=== PATIENT | male | born 1970 | race Caucasian/White ===

== ENCOUNTER 2017-09-15 01:43 | Emergency (ER) | payer BC ==
[~2017-09-15] VITALS: Ht 180.3 cm; Wt 90.3 kg
[~2017-09-15 01:43] MED LIST: ASP81TEC PO; CYCL10TA9 PO; DICL75TA2 PO; Flexeril; HYDR-3714 PO; ISM30TCR PO; LISI10TA PO; METH4TAB PO; METO-333 PO; NAPR500T4 PO; OXYC-465 PO; SMV20T PO
[2017-09-15] MEDS ORDERED: RT-ALBUTEROL/IPRATROPIUM 3 ML (DUONEB) VIAL ONE (01:49)
[2017-09-15] MEDS ORDERED: RT-ALBUTEROL SULF 2.5 MG/3 ML PRE-MIX VIAL ONE (01:49)
[2017-09-15] MEDS ORDERED: cefTRIAXone 1 GM (ROCEPHIN) VIAL IV STA (01:55)
[2017-09-15] MEDS ORDERED: NS IV 1000 ML 1,000 ML IV ONE (01:55)
[2017-09-15] MEDS ORDERED: RT-ALBUTEROL SULF 2.5 MG/3 ML PRE-MIX VIAL INH STA (01:55)
[2017-09-15] MEDS ORDERED: RT-ALBUTEROL/IPRATROPIUM 3 ML (DUONEB) VIAL INH ONE (02:00)
--- NOTE | 2017-09-15 02:03 | ED Respiratory ---
General Chief Complaint: Coughing up blood Stated Complaint: CONGESTION/COUGHING UP BLOOD Source: patient, spouse Exam Limitations: no limitations History of Present Illness Time seen by provider: 01:50 Initial Comments Patient presents to ER by private conveyance with a chief complaint that he has had for the past several days symptoms of a cold with cough, chest congestion but then today started having a productive cough with some flecks of blood in it and worsening malaise, fatigue and shortness of air. He has no history of lung disease however he does smoke about half a pack cigarettes per day. He has had a heart catheter in the past when they did a angioplasty but no stents were placed. He denies any chest pain at this time. He's had some chills but no objective fever. He denies any nausea, thyroid disease. He does take metoprolol for blood pressure. He denies a history of heart failure. He's had no noted weight gain or swelling in his hands or feet. He does not have breathing treatments that he takes routinely. Allergies and Home Medications Allergies Coded Allergies: No Known Drug Allergies (Unverified , 01/20/11) Home Medications Albuterol Sulfate 2.5 Mg/0.5 Ml Vial.neb, 2.5 MG IH Q4H PRN for SHORTNESS OF BREATH for 7 Days, #30 Ref 0 Prescribed by: ARNULFO MCNAMARA on 09/15/17249 Albuterol Sulfate 2.5 Mg/0.5 Ml Vial.neb, 2.5 MG IH Q6H for 7 Days, #30 Ref 0 Prescribed by: ARNULFO MCNAMARA on 09/15/17249 Amoxicillin/Potassium Clav 1 Each Tablet, 1 EACH PO BID for 6 Days, #12 Ref 0 Prescribed by: ARNULFO MCNAMARA on 09/15/17249 Azithromycin 250 Mg Tablet, 250 MG PO DAILY, #4 Ref 0 Prescribed by: ARNULFO MCNAMARA on 09/15/17249 Cyclobenzaprine Hcl 10 Mg Tablet, 1 EACH PO BID, (Reported) Guaifenesin/Codeine Phosphate 120 Ml Liquid, 5 ML PO Q6H PRN for COUGH, #120 Ref 0 Prescribed by: ARNULFO MCNAMARA on 09/15/17256 Hydrocodone Bit/Acetaminophen 1 Each Tablet, 1 EACH PO Q6HR PRN, (Reported) Methylprednisolone 4 Mg/Dose-Pack Tab.ds.pk, 0 PO UD, #1 Ref 0 Take per package directions. Prescribed by: CUAUHTEMOC QURESHI on 08/09/12 0948 Metoprolol Tartrate 25 Mg Tablet, 1 EACH PO BID, (Reported) Naproxen 500 Mg Tablet, 500 MG PO TID, #90 Prescribed by: ZORAIDA SAWANT on 06/29/15 0813 Oxycodone Hcl/Acetaminophen 1 Each Tablet, 1-2 EACH PO Q8H PRN, #10 Ref 0 Prescribed by: CUAUHTEMOC QURESHI on 08/09/12 0946 Simvastatin 20 Mg Tab, 20 MG PO DAILY, (Reported) [Flexeril] , 10 BID, #20 Prescribed by: ZORAIDA SAWANT on 06/29/15 0813 Constitutional: chills, No fever, malaise EENTM: No hearing loss, No ear pain, No eye pain Respiratory: cough, dyspnea on exertion, hemoptysis, phlegm, short of breath, wheezing Cardiovascular: see HPI, No chest pain, vascular heart diseas Gastrointestinal: No abdominal pain, No constipation, No diarrhea, No nausea, No vomiting Genitourinary: No discharge, No dysuria Musculoskeletal: No back pain, No joint pain Skin: No pruritus, No rash Psychiatric/Neurological: Denies Headache, Denies Numbness, Denies Paresthesia Past Segpvjl-Gtrjxm-Psbckn Hx Patient Social History Alcohol Use: Regular Use Alcohol Beverage of Choice: Beer Recreational Drug Use: No Smoking Status: Current Everyday Smoker Type Used: Cigarettes (0.5 ppd) Recent Foreign Travel: No Contact w/Someone Who Travel: No Immunizations Up To Date Tetanus Booster (TDap): Unknown Date of Influenza Vaccine: Aug 08, 2012 Cardiovascular Cardiac Disorders: High Cholesterol, Hypertension Reproductive System Hx Reproductive Disorders: No Musculoskeletal Musculoskeletal Disorders: Chronic Back Pain Physical Exam Vital Signs Vital Sign - Last 12Hours 09/15/17 02:08 O2 Flow Rate 6.00 Capillary Refill : General Appearance: WD/WN, moderate distress Eyes: Bilateral Eye Normal Inspection, Bilateral Eye PERRL, Bilateral Eye EOMI HEENT: PERRL/EOMI, normal ENT inspection, TMs normal, pharynx normal Neck: non-tender, full range of motion, supple, normal inspection Respiratory: chest non-tender, respiratory distress (mild), No accessory muscle use, crackles (bilateral), rhonchi, wheezing Cardiovascular: normal peripheral pulses, regular rate, rhythm, no edema, no JVD Gastrointestinal: normal bowel sounds, non tender, soft Extremities: no pedal edema, normal capillary refill Neurologic/Psychiatric: alert, oriented x 3 Skin: normal color, warm/dry Focused Exam Evaluation Lactate Level Laboratory Tests 09/15/17 01:55: Lactic Acid Level 0.74 Lactic Acid Level Laboratory Tests Test 09/15/17 01:55 Lactic Acid Level 0.74 MMOL/L (0.50-2.00) Progress/Results/Core Measures Suspected Sepsis SIRS Temperature: Pulse: Respiratory Rate: Laboratory Tests 09/15/17 01:55: White Blood Count 11.8H Blood Pressure / Mean: Laboratory Tests 09/15/17 01:55: Lactic Acid Level 0.74 Laboratory Tests 09/15/17 01:55: Creatinine 0.79, INR Comment 0.9, Platelet Count 270, Total Bilirubin 0.3 Results/Orders Lab Results Laboratory Tests Test 09/15/17 01:55 Range/Units White Blood Count 11.8 H 4.3-11.0 10^3/uL Red Blood Count 4.34 L 4.35-5.85 10^6/uL Hemoglobin 13.0 L 13.3-17.7 G/DL Hematocrit 38 L 40-54 % Mean Corpuscular Volume 86 80-99 FL Mean Corpuscular Hemoglobin 30 25-34 PG Mean Corpuscular Hemoglobin Concent 35 32-36 G/DL Red Cell Distribution Width 12.0 10.0-14.5 % Platelet Count 270 130-400 10^3/uL Mean Platelet Volume 10.1 7.4-10.4 FL Neutrophils (%) (Auto) 67 42-75 % Lymphocytes (%) (Auto) 23 12-44 % Monocytes (%) (Auto) 7 0-12 % Eosinophils (%) (Auto) 3 0-10 % Basophils (%) (Auto) 0 0-10 % Neutrophils # (Auto) 7.9 H 1.8-7.8 X 10^3 Lymphocytes # (Auto) 2.7 1.0-4.0 X 10^3 Monocytes # (Auto) 0.8 0.0-1.0 X 10^3 Eosinophils # (Auto) 0.3 0.0-0.3 10^3/uL Basophils # (Auto) 0.0 0.0-0.1 10^3/uL Prothrombin Time 12.5 12.2-14.7 SEC INR Comment 0.9 0.8-1.4 Activated Partial Thromboplast Time 30 24-35 SEC Sodium Level 140 135-145 MMOL/L Potassium Level 3.5 L 3.6-5.0 MMOL/L Chloride Level 105 98-107 MMOL/L Carbon Dioxide Level 24 21-32 MMOL/L Anion Gap 11 5-14 MMOL/L Blood Urea Nitrogen 10 7-18 MG/DL Creatinine 0.79 0.60-1.30 MG/DL Estimat Glomerular Filtration Rate > 60 BUN/Creatinine Ratio 13 Glucose Level 112 H 70-105 MG/DL Lactic Acid Level 0.74 0.50-2.00 MMOL/L Calcium Level 9.3 8.5-10.1 MG/DL Total Bilirubin 0.3 0.1-1.0 MG/DL Aspartate Amino Transf (AST/SGOT) 18 5-34 U/L Alanine Aminotransferase (ALT/SGPT) 17 0-55 U/L Alkaline Phosphatase 83 40-136 U/L B-Type Natriuretic Peptide 16.5 <100.0 PG/ML Total Protein 7.2 6.4-8.2 GM/DL Albumin 4.5 3.2-4.5 GM/DL My Orders Orders - ANDERSARNULFO Chest Pa/Lat (2 View) (09/15/17 01:55) Cbc With Automated Diff (09/15/17 01:55) Comprehensive Metabolic Panel (09/15/17 01:55) Lactic Acid Analyzer (09/15/17 01:55) Blood Culture (09/15/17 01:55) Sputum Culture (09/15/17 01:55) Ua Culture If Indicated (09/15/17 01:55) Protime With Inr (09/15/17 01:55) Partial Thromboplastin Time (09/15/17 01:55) O2 (09/15/17 01:55) Saline Lock/Iv-Start (09/15/17 01:55) Saline Lock/Iv-Start (09/15/17 01:55) Vital Signs Adult Sepsis Patie Q1H (09/15/17 01:55) Ceftriaxone Injection (Rocephin Injectio (09/15/17 01:55) Remove Rings In Anticipation O (09/15/17 01:55) Albuterol Pre-Mix Nebs (Rt) (Proventil (09/15/17 01:55) Albuterol/Ipra Inhalation Soln (Duoneb I (09/15/17 02:00) Saline Lock/Iv-Start (09/15/17 01:55) Ns Iv 1000 Ml (Sodium Chloride 0.9%) (09/15/17 01:55) BNP (09/15/17 01:55) Svn Sm Volume Nebulizer Rt-Rfs (09/15/17 01:55) Albuterol Pre-Mix Nebs (Rt) (Proventil (09/15/17 01:49) Albuterol/Ipra Inhalation Soln (Duoneb I (09/15/17 01:49) Albuterol Pre-Mix Nebs (Rt) (Proventil (09/15/17 02:23) Azithromycin Tablet (Zithromax Tablet) (09/15/17 03:00) D5 Ns 1000 Ml Iv Solution (Dextrose 5%/0 (09/15/17 02:50) Rx-Amoxicillin/Clav Tab (Rx-Augmentin Ta (09/15/17 09:00) Rx-Amoxicillin/Clav Tab (Rx-Augmentin Ta (09/15/17 03:06) Medications Given in ED Current Medications Medications Dose Ordered Sig/Gt Route Start Time Stop Time Status Last Admin Dose Admin Albuterol Sulfate 2.5 mg STK-MED ONCE .ROUTE 09/15/17 01:49 09/15/17 01:59 DC 09/15/17 02:24 5 MG Albuterol/ Ipratropium 3 ml ONCE ONCE INH 09/15/17 02:00 09/15/17 02:01 DC 09/15/17 02:04 3 ML Azithromycin 500 mg ONCE ONCE PO 09/15/17 03:00 09/15/17 03:01 DC 09/15/17 03:10 500 MG Sodium Chloride 1,000 ml @ 0 mls/hr Q0M ONCE IV 09/15/17 01:55 09/15/17 01:59 DC 09/15/17 02:14 999 MLS/HR Vital Signs/I&O Vital Sign - Last 12Hours 09/15/17 09/15/17 09/15/17 09/15/17 01:56 01:56 02:04 02:08 Temp 98.6 Pulse 73 Resp 19 B/P (MAP) 169/61 Pulse Ox 97 91 98 O2 Delivery Room Air Room Air Room Air O2 Flow Rate 6.00 09/15/17 09/15/17 02:23 02:25 Pulse Ox 93 O2 Delivery Room Air Room Air Capillary Refill : Progress Note #1: Time: 02:02 Progress Note Differential includes pneumonia, CHF exacerbation, COPD exacerbation. His vitals are actually really good; 97% on room air. His breath sounds however were audible from across the room. Patient is fatigued on just walking in from the lobby. Initially just watching him walk in the room we were concerned about sepsis but his vitals, laboratory are looking more likely outpatient therapy. Curb 65: 0 points. Progress Note #2: Time: 02:22 Progress Note After receiving a DuoNeb and 2.5 mg of albuterol his breathing has improved considerably and now able to hear rhonchus and crackles in the right lower lobe and wheezes throughout. We are going to give him another 5 mg of albuterol. He does have a nebulizer that belongs to a family member as well as some albuterol he can borrow tomorrow until he fills his prescription at home the day after Thanksgiving. Progress Note #3: Time: 02:57 Progress Note After another 5 mg of albuterol the patient's wheezing has now subsided completely. He still having some crackles and faint amount of rhonchi in the right lower lung. He is feeling a little better but he noted he has not had to urinate very much the last 2 days. We'll going give him another bag of fluids before letting him get out of here with his initial dose of azithromycin and Rocephin that we will switch to by mouth Augmentin. Diagnostic Imaging Diagonstic Imaging: Xray Plain Films/CT/US/NM/MRI: chest (2v) Comments poss right lower lobe infiltrate. Reviewed: Reviewed by Me Departure Impression Impression: Primary Impression: Pneumonia Qualified Codes: J18.1 - Lobar pneumonia, unspecified organism Disposition: HOME, SELF-CARE Condition: Stable Departure-Patient Inst. Decision time for Depature: 02:39 Referrals: [facility] (PCP) Primary Care Physician LISSETTE NICHOLAS (Family) Primary Care Physician Patient Instructions: Community-Acquired Pneumonia, Adult (DC) Add. Discharge Instructions: Make sure you're drinking plenty of fluids. Take the azithromycin starting tomorrow one tablet daily. Take the Augmentin one tablet twice a day with food. Take the breathing treatments every 6 hours while awake and every 4 hours if you 're having wheezing or shortness of breath take another one. Follow-up in one week with your primary care physician to make sure you're doing well. If you're getting short of breath and the breathing treatments are not helping or other worsening symptoms such as chest pain you should return to the ER for further evaluation and management. All discharge instructions reviewed with patient and/or family. Voiced understanding. Scripts Guaifenesin/Codeine Phosphate (Codeine-Guaifen 10-100 mg/5 ml) 120 Ml Liquid 5 ML PO Q6H Y for COUGH, #120 ML 0 Refills Prov: ARNULFO MCNAMARA 09/15/17 Albuterol Sulfate (Albuterol Sulfate) 2.5 Mg/0.5 Ml Vial.neb 2.5 MG IH Q6H for 7 Days, #30 EACH 0 Refills Prov: ARNULFO MCNAMARA 09/15/17 Albuterol Sulfate (Albuterol Sulfate) 2.5 Mg/0.5 Ml Vial.neb 2.5 MG IH Q4H Y for SHORTNESS OF BREATH for 7 Days, #30 EACH 0 Refills Prov: ARNULFO MCNAMARA 09/15/17 Amoxicillin/Potassium Clav (Augmentin 875-125 Tablet) 1 Each Tablet 1 EACH PO BID for 6 Days, #12 TAB 0 Refills Prov: ARNULFO MCNAMARA 09/15/17 Azithromycin (Azithromycin) 250 Mg Tablet 250 MG PO DAILY, #4 TAB 0 Refills Prov: ARNULFO MCNAMARA 09/15/17 Copy Copies To 1: KAMILAH EDGE TITUS J Sep 15, 2017 02:03
[2017-09-15 02:09] LABS: BASOPHILS % (AUTO) 0 % (0-10); EOSINOPHILS # (AUTO) 0.3 10^3/uL (0.0-0.3); EOSINOPHILS % (AUTO) 3 % (0-10); LYMPHOCYTES # (AUTO) 2.7 X 10^3 (1.0-4.0); LYMPHOCYTES % (AUTO) 23 % (12-44); MEAN CORPUSCULAR HEMOGLOBIN 30 PG (25-34); MEAN CORPUSCULAR HGB CONC 35 G/DL (32-36); MEAN CORPUSCULAR VOLUME 86 FL (80-99); MEAN PLATELET VOLUME 10.1 FL (7.4-10.4); MONOCYTES # (AUTO) 0.8 X 10^3 (0.0-1.0); MONOCYTES % (AUTO) 7 % (0-12); NEUTROPHILS # (AUTO) 7.9 X 10^3 (1.8-7.8); NEUTROPHILS % (AUTO) 67 % (42-75); PLATELET COUNT 270 10^3/uL (130-400); RED BLOOD COUNT 4.34 10^6/uL (4.35-5.85); WHITE BLOOD COUNT 11.8 10^3/uL (4.3-11.0)
[2017-09-15 02:18] LABS: INR 0.9 (0.8-1.4); PROTHROMBIN TIME PATIENT 12.5 SEC (12.2-14.7)
[2017-09-15] MEDS ORDERED: RT-ALBUTEROL SULF 2.5 MG/3 ML PRE-MIX VIAL IH STA (02:23)
[2017-09-15 02:29] LABS: ALANINE AMINOTRANSFERASE 17 U/L (0-55); ALBUMIN 4.5 GM/DL (3.2-4.5); ANION GAP 11 MMOL/L (5-14); ASPARTATE AMINO TRANSFERASE 18 U/L (5-34); BILIRUBIN,TOTAL 0.3 MG/DL (0.1-1.0); BLOOD UREA NITROGEN 10 MG/DL (7-18); BUN/CREATININE RATIO 13; CALCIUM 9.3 MG/DL (8.5-10.1); CARBON DIOXIDE 24 MMOL/L (21-32); CHLORIDE 105 MMOL/L (98-107); CREATININE SERUM 0.79 MG/DL (0.60-1.30); GFR ESTIMATED > 60; GLUCOSE 112 MG/DL (70-105); POTASSIUM 3.5 MMOL/L (3.6-5.0); SODIUM 140 MMOL/L (135-145); TOTAL PROTEIN 7.2 GM/DL (6.4-8.2)
[2017-09-15] MEDS ORDERED: AMOX-358 PO (02:50)
[2017-09-15] MEDS ORDERED: D5 NS 1000 ML IV SOLUTION 1,000 ML IV STA (02:50)
[2017-09-15] MEDS ORDERED: ALB0.5V IH ×2 (02:50)
[2017-09-15] MEDS ORDERED: AZIT250T12 PO (02:50)
[2017-09-15] MEDS ORDERED: GUAI120L56 PO (02:57)
[2017-09-15] MEDS ORDERED: AZITHROMYCIN 250 MG TAB (ZITHROMAX) PO ONE (03:00)
[2017-09-15] MEDS ORDERED: RX-AMOX/CLAV. (AUGMENTIN) 500MG TAB PPK#2 PO ONE (03:06)
[2017-09-15 04:05] VITALS: BP 136/71
--- NOTE | 2017-09-15 07:51 | Diagnostic Imaging Report ---
Indication: Cough. Comparison: None available. Findings: There are scattered ill-defined airspace opacities, which are most pronounced in the left midlung. No pleural effusion or pneumothorax. Normal cardiomediastinal silhouette and pulmonary vasculature. Impression: 1. Scattered reticular and nodular airspace opacities may relate to infectious bronchiolitis in the appropriate setting. Dictated by: Dictated on workstation # [id number]
[2017-09-15] MEDS ORDERED: RX-AMOX/CLAV. (AUGMENTIN) 500MG TAB PPK#2 PO SCH (09:00)
== END 2017-09-15 04:05 | disposition home or self-care (01) ==
LOC: EDUNIT# 01:43 → ER 01:45
DX: J18.9 Pneumonia, unspecified organism (principal); E78.00 Pure hypercholesterolemia, unspecified; I10 Essential (primary) hypertension; F17.210 Nicotine dependence, cigarettes, uncomplicated; Z95.1 Presence of aortocoronary bypass graft
CPT/HCPCS: 36415; 71020; 80053; 83605; 83880; 85025; 85610; 85730; 87040; 87070; 87205; 94640; 94664

== ENCOUNTER 2018-07-06 21:59 | Emergency (ER) | payer BC ==
[~2018-07-06] VITALS: Ht 180.3 cm; Wt 90.3 kg
[~2018-07-06 21:59] MED LIST changes: +ALB0.5V IH; +AMOX-358 PO; +AZIT250T12 PO; +GUAI120L56 PO; +NAPR-915 PO; -NAPR500T4 PO
[2018-07-06] MEDS ORDERED: GABA600T2 (22:10)
[2018-07-06] MEDS ORDERED: GABA-490 (22:10)
[2018-07-06] MEDS ORDERED: SERT100T8 (22:11)
[2018-07-06] MEDS ORDERED: TIZA4TAB3 (22:11)
--- NOTE | 2018-07-06 22:36 | ED Upper Extremity ---
General Chief Complaint: Head/Cervical Problems Stated Complaint: PAIN IN R SIDE NECK/SHOULDER Nursing Triage Note: RIGHT NECK/ARM PAIN. NO INJURY. Nursing Sepsis Screen: No Definite Risk Source: patient History of Present Illness Date Seen by Provider: Jul 06, 2018 Time Seen by Provider: 22:20 Initial Comments PT ARRIVES VIA POV FROM HOME STATES AROUND 1330 TODAY, HE WAS WORKING ON A RIDING LAWNMOWER, AND TURNED HIS HEAD AND FELT A POP IN RIGHT SHOULDER/COLLAR BONE AREA. STATES NO DIRECT INJURY , AND WAS NOT LIFTING/PULLING ON ANYTHING AT TIME SINCE THEN, HE HAS HAD PAIN IN RIGHT TRAPEZIUS MUSCLE AREA PT HAS CHRONIC NECK PAIN AND STATES HE HAS "RADICULAR RIGHT ARM PAIN AND NEUROPATHY" STATES HE "WAS SUPPOSED TO HAVE SURGERY ON IT" BUT NEVER DID--THIS WAS A COUPLE OF YEARS AGO. WAS SEEN BY DR. DOUGHERTY AT [address], WHO DID PREVIOUS LUMBAR SURGERY PT HAS NOT FOLLOWED UP WITH [address] FOR YEARS PT IS ON GABAPENTIN AND BACLOFEN FOR CHRONIC NECK AND BACK PAIN--SEES MIKALA NICHOLAS AT [facility] HAS NOT TAKEN ANY THING FOR THIS PAIN TODAY. NO NEW PARESTHESIAS OR MOTOR DEFICITS PT IS RIGHT HANDED PT STATES HE HAS BEEN DOING A LOT OF WORK WITH [employer] THE LAST COUPLE OF WEEKS WELL PCP: [facility]. MIKALA NICHOLAS Allergies and Home Medications Allergies Coded Allergies: No Known Drug Allergies (Unverified , 01/20/11) Home Medications Albuterol Sulfate 2.5 Mg/0.5 Ml Vial.neb, 2.5 MG IH Q4H PRN for SHORTNESS OF BREATH Prescribed by: ARNULFO MCNAMARA on 09/15/17 0250 Meloxicam 15 Mg Tablet, 15 MG PO DAILY Prescribed by: PANKAJ ALEXIS on 07/06/18 2254 Metoprolol Tartrate 25 Mg Tablet, 1 EACH PO BID, (Reported) Patient Home Medication List Home Medication List Reviewed: Yes Review of Systems Constitutional: no symptoms reported Musculoskeletal: see HPI Skin: no symptoms reported Psychiatric/Neurological: See HPI Past Tmapjqz-Hsdysk-Jjluxa Hx Patient Social History Alcohol Use: Regular Use (DRINKS "6 OR 8" BEERS DAILY, PER PT ON 07/06/18) Number of Drinks Today: AA Alcohol Beverage of Choice: Beer Recreational Drug Use: No (DENIES) Smoking Status: Current Everyday Smoker (UP TO 2 PPD) Type Used: Cigarettes 2nd Hand Smoke Exposure: Yes Recent Foreign Travel: No Contact w/Someone Who Travel: No Recent Infectious Disease Expo: No Recent Hopitalizations: No Immunizations Up To Date Tetanus Booster (TDap): Unknown Date of Influenza Vaccine: Aug 10, 2017 Seasonal Allergies Seasonal Allergies: No Past Medical History Surgeries: Yes (LUMBAR SPINE SURGERY) Orthopedic Respiratory: No Currently Using CPAP: No Cardiac: Yes High Cholesterol, Hypertension Neurological: Yes ("RADICULAR NECK PAIN AND NEUROPATHY" PER PT ON 07/06/18) Headaches /Migraines, Neuropathy Reproductive Disorders: No Genitourinary: No Gastrointestinal: No Musculoskeletal: Yes (CHRONIC NECK AND BACK PAIN WITH RADICULOPATHY; S/P LUMBAR SPINE SURGERY) Degenerate Disk Disease, Chronic Back Pain Endocrine: No HEENT: No Cancer: No Psychosocial: No Integumentary: No Blood Disorders: No Physical Exam Vital Signs Vital Signs - First Documented 07/06/18 22:11 Temp 96.7 Pulse 84 Resp 18 B/P (MAP) 131/94 (106) Pulse Ox 96 O2 Delivery Room Air Capillary Refill : Less Than 3 Seconds Height, Weight, BMI Height: 5'11.00" Weight: 199lbs. oz. 90.294888pf; 26.64 BMI Method:Stated General Appearance: WD/WN, no apparent distress, other (REEKS OF CIGARETTES) Neck: other (TENDERNESS DIRECTLY OVER RIGHT TRAPEZIUS MUSCLE. NO CERVICAL SPINE TENDERNESS. ) Cardiovascular: regular rate, rhythm, no edema, no murmur Respiratory: normal breath sounds, no respiratory distress, no accessory muscle use Back: no vertebral tenderness, other (TENDERNESS DIRECTLY OVER RIGHT TRAPEZIUS MUSCLE. 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, no motor/sensory deficits, alert, normal mood/affect, oriented x 3 Skin: normal color, warm/dry Procedures/Interventions Splinting and Joint Reduction : Arm Sling: Sherman Progress/Results/Core Measures Results/Orders My Orders Orders - PANKAJ ALEXIS DO Shoulder, Right, 3 Views (07/06/18 22:25) Ed Ortho Supplies Order (07/06/18 22:47) Vital Signs/I&O 07/06/18 07/06/18 22:11 23:04 Temp 96.7 96.7 Pulse 84 84 Resp 18 18 B/P (MAP) 131/94 (106) 131/94 (106) Pulse Ox 96 96 O2 Delivery Room Air Blood Pressure Mean: 106 Progress Progress Note : Progress Note DECLINES SHOTS FOR PAIN IN ER Diagnostic Imaging Comments XRAYS RIGHT SHOULDER--NO ACUTE PROCESS, PENDING RADIOLOGIST REVIEW Reviewed: Reviewed by Me Departure Impression Primary Impression: Strain of right trapezius muscle Additional Impression: Chronic neck and back pain Disposition: HOME, SELF-CARE Condition: Stable Departure-Patient Inst. Referrals: [facility] (PCP) Primary Care Physician LISSETTE NICHOLAS (Family) Primary Care Physician Patient Instructions: Cervical Muscle Strain (DC), Muscle Strain (DC) Add. Discharge Instructions: WEAR SLING AT ALL TIMES MOIST HEAT TO AREA AT 20 MINUTE INTERVALS CONTINUE YOUR CURRENT MEDICATIONS PRESCRIBED FOLLOW UP WITH [facility] NEXT WEEK FOR FUTHER CARE All discharge instructions reviewed with patient and/or family. Voiced understanding. Scripts Meloxicam (Mobic) 15 Mg Tablet 15 MG PO DAILY, #10 TAB Prov: PANKAJ ALEXIS DO 07/06/18 PANKAJ ALEXIS DO Jul 06, 2018 22:36
[2018-07-06] MEDS ORDERED: MELO15TA14 PO (22:54)
[2018-07-06 23:04] VITALS: BP 131/94
--- NOTE | 2018-07-07 07:27 | Diagnostic Imaging Report ---
Indication: Right shoulder pain. Comparison: None available. Technique: 3 views of right shoulder. Findings: The glenohumeral and acromioclavicular joints are normal in alignment. No acute fracture. Subacromial space is well-maintained. No abnormal soft tissue mineralizations. Impression: Normal right shoulder radiographs. Dictated by: Dictated on workstation # [id number]
== END 2018-07-06 23:01 | disposition home or self-care (01) ==
LOC: EDUNIT# 21:59 → ER 22:00
DX: S46.811A Strain of other muscles, fascia and tendons at shoulder and upper arm level, right arm, initial encounter (principal); M54.2 Cervicalgia; G89.29 Other chronic pain; E78.00 Pure hypercholesterolemia, unspecified; I10 Essential (primary) hypertension; G43.909 Migraine, unspecified, not intractable, without status migrainosus; F17.210 Nicotine dependence, cigarettes, uncomplicated; Z79.51 Long term (current) use of inhaled steroids; X50.1XXA Overexertion from prolonged static or awkward postures, initial encounter
CPT/HCPCS: 73030

== ENCOUNTER → 2018-10-23 | Outpatient (CLI) | payer BC ==
[~2018-10-23] MED LIST changes: +GABA-490; +GABA600T2; +MELO15TA14 PO; +SERT100T8; +TIZA4TAB3
== END | disposition home or self-care (01) ==
LOC: PREOP 05:50
PROVIDERS: ATTEND Surgery
DX: Z01.818 Encounter for other preprocedural examination (principal)

== ENCOUNTER 2018-10-28 10:42 | Emergency (ER) | payer BC | END 2018-10-28 12:44 | disposition home or self-care (01) | LOC: ER 10:42 ==

== ENCOUNTER 2018-12-22 07:44 | Outpatient (CLI) | payer BC ==
[~2018-12-22] VITALS: Ht 180.3 cm; Wt 90.7 kg
[~2018-12-22 07:44] MED LIST changes: +AZIT250T PO; -GABA600T2; +GBPN600T PO; +PRED10TA22 PO; +RT-ALBUINH IH; -SERT100T8; +SERT100T8 PO
[2018-12-22] MEDS ORDERED: SIMV40TA4 PO (12:01)
[2018-12-22] MEDS ORDERED: METO50TA15 PO (12:01)
[2018-12-22] MEDS ORDERED: BACL20TA PO (12:01)
== END 2018-12-22 12:05 | disposition home or self-care (01) ==
LOC: PREOP 07:44
PROVIDERS: ATTEND Surgery
DX: Z01.818 Encounter for other preprocedural examination (principal)

== ENCOUNTER 2018-12-25 10:28 | Day surgery (SDC) | payer BC ==
[~2018-12-25] VITALS: Ht 180.3 cm; Wt 90.7 kg
[~2018-12-25 10:28] MED LIST changes: +BACL20TA PO; +METO50TA15 PO; +SIMV40TA4 PO
[2018-12-25] MEDS ORDERED: NS IV 500 ML 500 ML IV PRN (10:44)
[2018-12-25] MEDS ORDERED: MIDAZOLAM 2 MG/2 ML (VERSED) VIAL IVP ONE (10:45)
[2018-12-25] MEDS ORDERED: fentaNYL INJECTION 100 MCG/2 ML AMP IVP ONE (10:45)
[2018-12-25] MEDS ORDERED: NS IV 500 ML 500 ML ONE (10:49)
[2018-12-25 11:18] VITALS: BP 126/92
[2018-12-25] MEDS ORDERED: fentaNYL INJECTION 100 MCG/2 ML AMP ONE ×2 (12:03→12:25)
[2018-12-25] MEDS ORDERED: MIDAZOLAM 2 MG/2 ML (VERSED) VIAL ONE ×5 (12:03→12:39)
--- NOTE | 2018-12-25 13:04 | Conscious Sedation/ASA ---
Conscious Sedation Pre-Proced Time 10:00 ASA Score 2 For ASA 3 and 4: Consider anesthesia and medical clearance. Also, for patients with a history of failed moderate sedation consider anesthesia. Airway Lungs Heart ASA score ASA 1: a normal healthy patient ASA 2: a patient with a mild systemic disease (mid diabetes, controlled hypertension, obesity ASA 3: a patient with a severe systemic disease that limits activity (angina , COPD, prior Myocardial infarction) ASA 4: a patient with an incapacitating disease that is a constant threat to life (CHF, renal failure) ASA 5: a moribund patient not expected to survive 24 hrs. (ruptured aneurysm) ASA 6: a declared brain- patient whose organs are being harvested. For emergent operations, add the letter E after the classification Mallampati Classification Grade 1 Sedation Plan Discussed options with patient/fam The patient is an appropriate candidate to undergo the planned procedure, sedation, and anesthesia. The patient immediately re-assessed prior to indication. SHAUNA PABON MD Dec 25, 2018 13:04
--- NOTE | 2018-12-25 13:07 | Endo Procedure Record ---
Endo Procedure Report Date of Procedure Last Colonoscopy: Yes Dec 25, 2018 Surgeon (s) SHAUNA PABON MD Post Procedure/Op Diagnosis erythema and shallow ulcers extending from the rectum to the proximal descending colon Procedure Performed colonoscopy to cecum with multiple biopsies Description of Procedure Anesthesia Type: Conscious Sedation Specimen(s) collected/removed biopsy from multiple segments of the colon Description of the Procedure Indication for the procedure: This gentleman came in for colonoscopy to evaluate new onset of diarrhea. Clostridium difficile was confirmed to be negative. Informed consent was obtained after reviewing the procedure in detail. Description of the procedure: He was placed in left lateral decubitus position and his vital signs were monitored. Conscious sedation was achieved using Versed and fentanyl. Digital rectal examination was unremarkable. The colonoscope was then introduced in the rectum and advanced all the way up to cecum. It was then withdrawn slowly and the mucosa examined in a systematic fashion. Finding: Erythema and shallow ulcers involving the distal rectum, extending up to the proximal descending colon. There was no evidence of skip lesions. Multiple biopsies were taken. He tolerated the procedure well and was taken back to the nursing area in a stable condition. Impression: Diarrhea. Erythema and shallow ulcers involving the left colon biopsy pending. Copy Copies To 1: KAMILAH EDGE XAVIER M MD Dec 25, 2018 13:07
--- NOTE | 2018-12-25 13:08 | Discharge Inst-Simple/Standard ---
Discharge Inst-Standard Discharge Medications New, Converted or Re-Newed RX: Other Patient Instructions/Follow Up Plan of Care/Instructions/FU: follow-up with me this to discuss pathology reports and plan treatment Activity as Tolerated: Yes Discharge Diet: No Restrictions SHAUNA PABON MD Dec 25, 2018 13:08
[2018-12-25 13:10] VITALS: BP 105/76
[2018-12-25 13:40] VITALS: BP 128/89
[2018-12-25 14:15] VITALS: BP 128/89
== END 2018-12-25 13:40 | disposition home or self-care (01) ==
LOC: ENDO 10:28
PROVIDERS: ATTEND Surgery
DX: K62.6 Ulcer of anus and rectum (principal); K63.3 Ulcer of intestine; K52.9 Noninfective gastroenteritis and colitis, unspecified; F17.210 Nicotine dependence, cigarettes, uncomplicated

== ENCOUNTER 2020-08-24 20:37 | Emergency (ER) | payer BC ==
[~2020-08-24] VITALS: Ht 180 cm; Wt 95.0 kg
[~2020-08-24 20:37] MED LIST changes: +SIMV40TA25 PO; -SIMV40TA4 PO; -TIZA4TAB3; +TIZA4TAB4
[2020-08-24] MEDS ORDERED: RT-ALBUTEROL INHALER HFA (VENTOLIN HFA) 18 GM IH ONE (20:52)
--- NOTE | 2020-08-24 20:55 | ED General ---
General Stated Complaint: COUGH/CONGESTION/HEADACHE/SORE THROAT Source of Information: Patient Exam Limitations: No Limitations History of Present Illness Date Seen by Provider: Aug 24, 2020 Time Seen by Provider: 20:53 Initial Comments to ER not feeling well. Symptoms all began this morning including a cough, wheezing, rhinorrhea, headache and sore throat. She also has body aches. No measured fever. He is employed at [employer] Timing/Duration: 1-2 Days Severity: Moderate Associated Systoms: Cough Allergies and Home Medications Allergies Coded Allergies: No Known Drug Allergies (Unverified , 01/20/11) Home Medications Baclofen 20 Mg Tablet, 20 MG PO DAILY, (Reported) Cefuroxime Axetil 500 Mg Tablet, 500 MG PO BID Prescribed by: MAREK KEITA on 08/24/202201 Gabapentin 600 Mg Tablet, 600 MG PO TID, (Reported) Metoprolol Tartrate 50 Mg Tablet, 75 MG PO BID, (Reported) take 1 1/2 of 50mg tab Prednisone 20 Mg Tab, 40 MG PO DAILY Prescribed by: MAREK KEITA on 08/24/202201 Sertraline HCl 100 Mg Tablet, 100 MG PO DAILY, (Reported) Simvastatin 40 Mg Tablet, 40 MG PO DAILY, (Reported) Patient Home Medication List Home Medication List Reviewed: Yes Review of Systems Review of Systems Constitutional: see HPI EENTM: see HPI Respiratory: see HPI, cough Cardiovascular: no symptoms reported Genitourinary: no symptoms reported Musculoskeletal: no symptoms reported Skin: no symptoms reported Psychiatric/Neurological: No Symptoms Reported Hematologic/Lymphatic: No Symptoms Reported Past Ahxdzoj-Seydrc-Vhstol Hx Patient Social History Alcohol Beverage of Choice: Beer Type Used: Cigarettes 2nd Hand Smoke Exposure: Yes Recent Foreign Travel: No Contact w/Someone Who Travel: No Recent Hopitalizations: No Immunizations Up To Date Tetanus Booster (TDap): Unknown Date of Influenza Vaccine: Aug 10, 2018 Seasonal Allergies Seasonal Allergies: No Past Medical History Surgeries: Yes (LUMBAR SPINE SURGERY) Orthopedic Respiratory: No Currently Using CPAP: No Cardiac: Yes High Cholesterol, Hypertension Neurological: Yes ("RADICULAR NECK PAIN AND NEUROPATHY" PER PT ON 07/06/18) Headaches /Migraines, Neuropathy Reproductive Disorders: No Genitourinary: No Gastrointestinal: No Musculoskeletal: Yes (CHRONIC NECK AND BACK PAIN WITH RADICULOPATHY; S/P LUMBAR SPINE SURGERY) Degenerate Disk Disease, Chronic Back Pain Endocrine: No HEENT: No Cancer: No Psychosocial: No Integumentary: No Blood Disorders: No Physical Exam Vital Signs Vital Signs - First Documented 08/24/20 20:54 Temp 36.6 Pulse 85 Resp 24 B/P (MAP) 157/105 (122) Pulse Ox 96 O2 Delivery Room Air Capillary Refill : Height, Weight, BMI Height: 5'11.00" Weight: 200lbs. 0.0oz. 90.826019wt; 27.9 BMI Method:Stated General Appearance: No Apparent Distress, WD/WN, Other (little tachypnea with a rate of 24, crackles on the right, wheezing on the left. Oxygen saturation 97%.) Eyes: Bilateral Eye Normal Inspection, Bilateral Eye PERRL, Bilateral Eye EOMI HEENT: PERRL/EOMI, TMs Normal Neck: Full Range of Motion, Normal Inspection Respiratory: No Accessory Muscle Use, No Respiratory Distress Cardiovascular: Regular Rate, Rhythm, Normal Peripheral Pulses Extremity: Normal Capillary Refill, Normal Inspection Neurologic/Psychiatric: Alert, Oriented x3 Skin: Normal Color, Warm/Dry Progress/Results/Core Measures Suspected Sepsis SIRS Temperature: Pulse: Respiratory Rate: Laboratory Tests 08/24/20 21:02: White Blood Count 15.6H Blood Pressure / Mean: Laboratory Tests 08/24/20 21:02: Creatinine 0.98, Platelet Count 272 Results/Orders Lab Results Laboratory Tests Test 08/24/20 21:02 Range/Units White Blood Count 15.6 H 4.3-11.0 10^3/uL Red Blood Count 4.84 4.30-5.52 10^6/uL Hemoglobin 14.4 13.3-17.7 g/dL Hematocrit 43 40-54 % Mean Corpuscular Volume 88 80-99 fL Mean Corpuscular Hemoglobin 30 25-34 pg Mean Corpuscular Hemoglobin Concent 34 32-36 g/dL Red Cell Distribution Width 12.2 10.0-14.5 % Platelet Count 272 130-400 10^3/uL Mean Platelet Volume 9.8 9.0-12.2 fL Immature Granulocyte % (Auto) 0 % Neutrophils (%) (Auto) 81 H 42-75 % Lymphocytes (%) (Auto) 13 12-44 % Monocytes (%) (Auto) 3 0-12 % Eosinophils (%) (Auto) 3 0-10 % Basophils (%) (Auto) 0 0-10 % Neutrophils # (Auto) 12.6 H 1.8-7.8 10^3/uL Lymphocytes # (Auto) 2.0 1.0-4.0 10^3/uL Monocytes # (Auto) 0.5 0.0-1.0 10^3/uL Eosinophils # (Auto) 0.4 H 0.0-0.3 10^3/uL Basophils # (Auto) 0.1 0.0-0.1 10^3/uL Immature Granulocyte # (Auto) 0.1 0.0-0.1 10^3/uL Sodium Level 139 135-145 MMOL/L Potassium Level 3.5 L 3.6-5.0 MMOL/L Chloride Level 103 98-107 MMOL/L Carbon Dioxide Level 23 21-32 MMOL/L Anion Gap 13 5-14 MMOL/L Blood Urea Nitrogen 17 7-18 MG/DL Creatinine 0.98 0.60-1.30 MG/DL Estimat Glomerular Filtration Rate > 60 BUN/Creatinine Ratio 17 Glucose Level 93 70-105 MG/DL Calcium Level 9.5 8.5-10.1 MG/DL C-Reactive Protein High Sensitivity 0.40 0.00-0.50 MG/DL Coronavirus 2019 (NEIL) Negative Negative Micro Results Microbiology 08/24/20 Influenza Types A,B Antigen (ARASELI) - Final, Complete My Orders Orders - MAREK KEITA APRN Influenza A And B Antigens (08/24/20 20:44) Chest 1 View, Ap/Pa Only (08/24/20 20:44) Covid 19 Inhouse Test (08/24/20 20:44) Coronavirus Sars-Cov-2 So 2018 (08/24/20 20:44) Cbc With Automated Diff (08/24/20 20:52) Basic Metabolic Panel (08/24/20 20:52) Hs C Reactive Protein (08/24/20 20:52) Ed Iv/Invasive Line Start (08/24/20 20:52) Albuterol Inhaler (Ventolin Hfa) (08/24/20 22:00) Albuterol Inhaler (Ventolin Hfa) (08/24/20 20:52) Ketorolac Injection (Toradol Injection) (08/24/20 21:15) Manual Differential (08/24/20 21:02) Prednisone Tablet (Deltasone Tablet) (08/24/20 22:00) Ceftriaxone For Iv Use (Rocephin For I (08/24/20 22:00) Medications Given in ED Current Medications Medications Dose Ordered Sig/Gt Route Start Time Stop Time Status Last Admin Dose Admin Albuterol Sulfate 18 gm STK-MED ONCE IH 08/24/20 20:52 08/24/20 20:54 DC 08/24/20 21:09 18 GM Ketorolac Tromethamine 15 mg ONCE ONCE IVP 08/24/20 21:15 08/24/20 21:16 DC 08/24/20 21:21 15 MG Vital Signs/I&O 08/24/20 20:54 Temp 36.6 Pulse 85 Resp 24 B/P (MAP) 157/105 (122) Pulse Ox 96 O2 Delivery Room Air Capillary Refill : Diagnostic Imaging Diagonstic Imaging: Xray Plain Films/CT/US/NM/MRI: chest Comments NAME: TY THOMPSON MED REC#: [id number] PT STATUS: REG ER : 1970 PHYSICIAN: MAREK KEITA APRN ADMIT DATE: 08/24/20/ER Draft Date of Exam:08/24/20 CHEST 1 VIEW, AP/PA ONLY INDICATION: Cough. COMPARISON: 10/28/2018. TECHNIQUE: Single radiograph of the chest dated August 24, 2020. FINDINGS: The cardiac silhouette is within normal limits in size. No significant pulmonary vascular congestion. The lungs are clear. No pleural effusion. No pneumothorax. No acute osseous abnormality. IMPRESSION: No acute cardiopulmonary abnormality. Dictated on workstation # [id number] Dict: 08/24/202119 Trans: 08/24/202124 [facility] [id number] Interpreted by: UCHE DIAZ MD Electronically signed by: Departure Impression Primary Impression: Bronchitis Disposition: HOME, SELF-CARE Condition: Stable Departure-Patient Inst. Decision time for Depature: 21:31 Referrals: [facility] (PCP) Primary Care Physician LISSETTE NICHOLAS (Family) Primary Care Physician Patient Instructions: Acute Bronchitis, Adult (DC) Add. Discharge Instructions: 1. 2 puffs of the inhaler every 2-4 hours as needed for wheezing. Take the steroids and antibiotics as directed. Follow-up with your doctor later this week for recheck. Return to ER for any worsening. Scripts Cefuroxime Axetil (Cefuroxime) 500 Mg Tablet 500 MG PO BID, #10 TAB Prov: MAREK KEITA APRN 08/24/20 Prednisone (Prednisone) 20 Mg Tab 40 MG PO DAILY, #6 TAB 0 Refills Prov: MAREK KEITA APRN 08/24/20 Work/School Note: Work Release Form Date Seen in the Emergency Department: Aug 24, 2020 Return to Work: Aug 24, 2020 Restrictions: Need Release from Doctor MAREK KEITA APRN Aug 24, 2020 20:55
[2020-08-24 21:11] LABS: BASOPHILS # (AUTO) 0.1 10^3/uL (0.0-0.1); BASOPHILS % (AUTO) 0 % (0-10); EOSINOPHILS # (AUTO) 0.4 10^3/uL (0.0-0.3); EOSINOPHILS % (AUTO) 3 % (0-10); HEMATOCRIT 43 % (40-54); HEMOGLOBIN 14.4 g/dL (13.3-17.7); LYMPHOCYTES % (AUTO) 13 % (12-44); MEAN CORPUSCULAR HEMOGLOBIN 30 pg (25-34); MEAN CORPUSCULAR HGB CONC 34 g/dL (32-36); MEAN CORPUSCULAR VOLUME 88 fL (80-99); MEAN PLATELET VOLUME 9.8 fL (9.0-12.2); MONOCYTES # (AUTO) 0.5 10^3/uL (0.0-1.0); MONOCYTES % (AUTO) 3 % (0-12); NEUTROPHILS # (AUTO) 12.6 10^3/uL (1.8-7.8); NEUTROPHILS % (AUTO) 81 % (42-75); PLATELET COUNT 272 10^3/uL (130-400); WHITE BLOOD COUNT 15.6 10^3/uL (4.3-11.0)
[2020-08-24] MEDS ORDERED: KETOROLAC 30 MG/ML VIAL IVP ONE (21:15)
--- NOTE | 2020-08-24 21:17 | NUR ---
Pt to room, onto monitor, IV started and labs drawn. Meds given as ordered. Pt noted to have coarse lung sounds with auscultation and reports a non-productive cough but moderate amount of clear mucous secretions from his nose.
--- NOTE | 2020-08-24 21:25 | Diagnostic Imaging Report ---
INDICATION: Cough. COMPARISON: 10/28/2018. TECHNIQUE: Single radiograph of the chest dated August 24, 2020. FINDINGS: The cardiac silhouette is within normal limits in size. No significant pulmonary vascular congestion. The lungs are clear. No pleural effusion. No pneumothorax. No acute osseous abnormality. IMPRESSION: No acute cardiopulmonary abnormality. Dictated by: Dictated on workstation # [id number]
[2020-08-24 21:26] LABS: CHLORIDE 103 MMOL/L (98-107); POTASSIUM 3.5 MMOL/L (3.6-5.0); SODIUM 139 MMOL/L (135-145)
[2020-08-24 21:27] LABS: CALCIUM 9.5 MG/DL (8.5-10.1)
[2020-08-24 21:28] LABS: GLUCOSE 93 MG/DL (70-105)
[2020-08-24 21:29] LABS: CARBON DIOXIDE 23 MMOL/L (21-32)
[2020-08-24 21:32] LABS: CREATININE SERUM 0.98 MG/DL (0.60-1.30); GFR ESTIMATED > 60
[2020-08-24 21:33] LABS: BUN/CREATININE RATIO 17
[2020-08-24] MEDS ORDERED: predniSONE 20 MG TAB PO ONE (22:00)
[2020-08-24] MEDS ORDERED: RT-ALBUTEROL INHALER HFA (VENTOLIN HFA) 18 GM IH SCH (22:00)
[2020-08-24] MEDS ORDERED: cefTRIAXone FOR IV USE 1,000 MG in WATER (STERILE) FOR INJECTION 10 ML IV ONE (22:00)
[2020-08-24] MEDS ORDERED: CEFU500T63 PO (22:02)
[2020-08-24] MEDS ORDERED: PRD20T PO (22:02)
[2020-08-24 22:05] LABS: EOSINOPHILS % (MANUAL) 3 %; LYMPHOCYTES % (MANUAL) 14 %; MONOCYTES % (MANUAL) 2 %; NEUTROPHILS % (MANUAL) 81 %; RBC MORPH NORMAL
[2020-08-24 22:27] VITALS: BP 157/105
== END 2020-08-24 22:37 | disposition home or self-care (01) ==
LOC: EDUNIT# 20:37 → ER 20:38
DX: J40 Bronchitis, not specified as acute or chronic (principal); E78.00 Pure hypercholesterolemia, unspecified; I10 Essential (primary) hypertension; Z77.22 Contact with and (suspected) exposure to environmental tobacco smoke (acute) (chronic); Z79.52 Long term (current) use of systemic steroids; Z20.828 Contact with and (suspected) exposure to other viral communicable diseases
CPT/HCPCS: 71045; 80048; 85007; 85027; 86141; 87804; 99284; U0002; 36415; 87635

== ENCOUNTER → 2021-09-03 | Outpatient (CLI) | payer BC ==
[~2021-09-03] MED LIST changes: +CEFU500T63 PO; +PRD20T PO; +SERT-414 PO; -SERT100T8 PO
--- NOTE | 2021-09-03 16:13 | Diagnostic Imaging Report ---
PROCEDURE: MR imaging cervical spine without contrast. TECHNIQUE: Multiplanar, multisequence MR imaging of the cervical spine was performed without contrast. INDICATION: Neck pain with bilateral upper extremity radiculopathy. COMPARISON: 06/29/2015. FINDINGS: No acute fracture or dislocation is seen in the cervical spine. There is normal alignment of the cervical spine. The vertebral body heights and disc spaces are well maintained. The bone marrow signal is unremarkable. No focal osseous lesions. The craniocervical junction is maintained. The cervical spinal cord demonstrates normal intrinsic signal. No epidural collections are seen. The included brainstem and posterior fossa have normal appearance. Multilevel degenerative changes are seen in the cervical spine with posterior disc bulges and uncovertebral arthropathy. C2-C3: No significant spinal canal or foraminal stenosis. C3-C4: No significant spinal canal or foraminal stenosis. C4-C5: No significant spinal canal or foraminal stenosis. C5-C6: Posterior disc bulge, buckling of the ligamentum flavum, and uncovertebral arthropathy result in moderate spinal canal stenosis and aoqrjbxj-kx-zrozub right and mild left foraminal stenosis. C6-C7: Posterior disc bulge and uncovertebral arthropathy result in moderate spinal canal stenosis and [id number]-[id number] bilateral foraminal stenosis. C7-T1: No significant spinal canal or foraminal stenosis. The soft tissues of neck are unremarkable. IMPRESSION: 1. No acute fracture or dislocation of the cervical spine. 2. Multilevel degenerative changes in the cervical spine, greatest at C5-C6 and C6-C7. Dictated by: Dictated on workstation # [id number]
== END ==
LOC: RAD 14:00
PROVIDERS: ATTEND Physician Assistant
DX: M47.812 Spondylosis without myelopathy or radiculopathy, cervical region (principal)
CPT/HCPCS: 72141

== ENCOUNTER 2021-10-09 22:58 | Emergency (ER) | payer BC ==
[~2021-10-09] VITALS: Ht 180.3 cm; Wt 89.4 kg
[~2021-10-09 22:58] MED LIST changes: +TIZA-186; -TIZA4TAB4
--- NOTE | 2021-10-09 23:57 | ED Respiratory ---
General Chief Complaint: COVID19 Suspect/Confirmed Stated Complaint: AMADOR,FEVER,CONGESTION,COUGH BODY ACHES Nursing Triage Note: Pt arrives via POV from home with c/o cough/congestion, headache, et fever; onset 10/07/21. Pt denies known COVID contacts; reports he has not received COVID vaccine, does report he was dx with COVID last year. Source: patient History of Present Illness Date Seen by Provider: Oct 09, 2021 Time Seen by Provider: 23:19 Initial Comments PT ARRIVES VIA POV FROM HOME PT HAS BEEN ILL SINCE 10/07/21 C/O FEVER UP TO 102 C/O COUGH/CONGESTION C/O HEADACHE C/O FATIGUE C/O BODY ACHES C/O DECREASED APPETITE NO LOSS OF TASTE OR SMELL + SORE THROAT + SHORTNESS OF BREATH PT HAS NOT HAD COVID-19 VACCINE STATES HE HAD COVID-19 LAST YEAR IN AUGUST 2020, NO HOSPITALIZATION ( COVID TESTS DONE HERE IN ER 08/24/2020 WERE ALL NEGATIVE ) DAUGHTER TESTED + FOR COVID THE END OF AUGUST--2 WEEKS PRIOR TO ONSET OF PT'S SYMPTOMS PT LIVES WITH AND GRAND DAUGHTER DAUGHTER IS FREQUENTLY AT THE HOUSE SYMPTOMS NO DIFFERENT TONIGHT ( TUESDAY NIGHT) STATES HIS FAMILY MADE HIM COME H ERE TONIGHT AND GET TESTED HAS TAKEN DAYQUIL AND NYQUIL FOR SYMPTOMS AT DISMISSAL, PT NOW STATES HE WAS AT [facility] TODAY AROUND NOON FOR THIS PROBLEM AND TESTED NEGATIVE FOR COVID AND WAS ADVISED TO RETURN IN 24 HOURS TO GET RETESTED PCP: [facility] Allergies and Home Medications Allergies Coded Allergies: No Known Drug Allergies (Unverified , 01/20/11) Patient Home Medication List Home Medication List Reviewed: Yes Baclofen (Baclofen) 20 Mg Tablet, 20 MG PO DAILY, (Reported) Entered as Reported by: RYAN OROZCO on 12/22/18 1201 Cefuroxime Axetil (Cefuroxime) 500 Mg Tablet, 500 MG PO BID Prescribed by: MAREK KEITA on 08/24/20 220 Dexamethasone (Decadron) 6 Mg Tablet, 6 MG PO DAILY Prescribed by: PAKNAJ ALEXIS on 10/10/21 0036 Gabapentin (Gabapentin) 600 Mg Tablet, 600 MG PO TID, (Reported) Entered as Reported by: EFRAIN GASCA on 07/06/18 2210 Metoprolol Tartrate (Metoprolol Tartrate) 50 Mg Tablet, 75 MG PO BID, (Reported) Entered as Reported by: RYAN OROZCO on 12/22/18 1201 Ondansetron (Ondansetron Odt) 4 Mg Tab.rapdis, 4 MG PO Q4H Prescribed by: PANKAJ ALEXIS on 10/10/21 0036 Prednisone (Prednisone) 20 Mg Tab, 40 MG PO DAILY Prescribed by: MAREK KEITA on 08/24/20 2202 Sertraline HCl (Sertraline HCl) 100 Mg Tablet, 100 MG PO DAILY, (Reported) Entered as Reported by: EFRAIN GASCA on 07/06/18 2211 Simvastatin (Simvastatin) 40 Mg Tablet, 40 MG PO DAILY, (Reported) Entered as Reported by: RYAN OROZCO on 12/22/18 1201 Review of Systems Review of Systems Constitutional: see HPI, fever, malaise, weakness EENTM: nose congestion Respiratory: cough; No short of breath Cardiovascular: no symptoms reported Gastrointestinal: see HPI, loss of appetite Genitourinary: no symptoms reported Musculoskeletal: see HPI (BODY ACHES) Skin: no symptoms reported Psychiatric/Neurological: See HPI, Headache Hematologic/Lymphatic: No Symptoms Reported Immunological/Allergic: no symptoms reported Past Msmwpmb-Wkjpdj-Wnsvfs Hx Patient Social History Tobacco Use?: Yes Tobacco type used: Cigarettes Smoking Status: Current Everyday Smoker Use of E-Cig and/or Vaping dev: No Substance use?: No Alcohol Use?: Yes Alcohol type: Beer Alcohol Frequency: Couple times a week Pt feels they are or have been: No Immunizations Up To Date Tetanus Booster (TDap): Unknown Influenza Vaccine Up-to-Date: No; Not Current Seasonal Allergies Seasonal Allergies: No Past Medical History Surgeries: Yes (LUMBAR SPINE SURGERY) Orthopedic Respiratory: No Currently Using CPAP: No Cardiac: Yes High Cholesterol, Hypertension Neurological: Yes ("RADICULAR NECK PAIN AND NEUROPATHY" PER PT ON 07/06/18) Headaches /Migraines, Neuropathy Reproductive Disorders: No Genitourinary: No Gastrointestinal: No Musculoskeletal: Yes (CHRONIC NECK AND BACK PAIN WITH RADICULOPATHY; S/P LUMBAR SPINE SURGERY) Degenerate Disk Disease, Chronic Back Pain Endocrine: No HEENT: No Cancer: No Psychosocial: No Integumentary: No Blood Disorders: No Physical Exam Vital Signs - First Documented 10/09/21 23:15 Temp 35.9 Pulse 98 Resp 18 B/P (MAP) 157/107 (124) Pulse Ox 98 O2 Delivery Room Air Capillary Refill : Less Than 3 Seconds Height: 5'11.00" Weight: 200lbs. 0.0oz. 90.481211lp; 27.00 BMI Method:Stated General Appearance: WD/WN, no apparent distress, other (REEKS OF CIGARETTES, DOES NOT APPEAR ILL OR TO BE IN ANY DISCOMFORT OR DISTRESS. NO COUGH. NO DYSPNEA) HEENT: PERRL/EOMI, pharynx normal Neck: normal inspection Respiratory: normal breath sounds, no respiratory distress, no accessory muscle use Cardiovascular: regular rate, rhythm, no edema, no JVD, no murmur Gastrointestinal: soft Extremities: normal inspection, normal capillary refill Neurologic/Psychiatric: director corporate communications II-XII nml as tested, no motor/sensory deficits, alert, normal mood/affect, oriented x 3 Skin: normal color, warm/dry, tattoos/piercings Progress/Results/Core Measures Suspected Sepsis SIRS Temperature: Pulse: 98 Respiratory Rate: 18 Blood Pressure 157 /107 Mean: 124 Results/Orders Lab Results Laboratory Tests Test 10/09/21 23:20 Range/Units Influenza Type A (RT-PCR) Not Detected Not Detecte Influenza Type B (RT-PCR) Not Detected Not Detecte SARS-CoV-2 RNA (RT-PCR) Not Detected Not Detecte My Orders Orders - PANKAJ ALEXIS DO Influenza A And B By Pcr (10/09/21 23:20) Covid 19 Inhouse Test (10/09/21 23:20) Prednisone Tablet (Deltasone Tablet) (10/10/21 00:45) Vital Signs/I&O 10/09/21 10/09/21 23:15 23:15 Temp 35.9 Pulse 98 Resp 18 B/P (MAP) 157/107 (124) Pulse Ox 98 O2 Delivery Room Air Room Air Capillary Refill : Less Than 3 Seconds Blood Pressure Mean: 124 Progress Note : Progress Note PLACED IN ISOLATION ROOM PPE WORN AT ALL TIMES COVID-19 TESTING PERFORMED NO COUGH NO DYSPNEA NO HYPOXIA PT ADVISED OF NEED FOR QUARANTINE AND BE RETESTED IN 1-2 DAYS AT [facility] ALSO ADVISED OF NEED FOR FOLLOW UP WITH [facility] FOR ELEVATED BLOOD PRESSURE--PT STATES HE WENT OFF HIS BLOOD PRESSURE MEDICATION 2 MONTHS AGO "BECAUSE IT WAS DOING GOOD" Departure Impression Primary Impression: Person under investigation for COVID-19 Additional Impressions: Upper respiratory infection HTN (hypertension) Disposition: 01 HOME, SELF-CARE Condition: Stable Departure-Patient Inst. Decision time for Depature: 00:30 Referrals: [facility] (PCP) Primary Care Physician TY CARRILLO (Family) Primary Care Physician Patient Instructions: COVID-19 Tests, Preventing the Spread of an Infectious Disease, COVID-19 Overview Add. Discharge Instructions: LOTS OF CLEAR LIQUIDS TYLENOL 1 GRAM / MOTRIN 800 MG 4 TIMES A DAY FOR PAIN OR FEVER OVER THE COUNTER MUCINEX DM FOR COUGH AND CONGESTION FOLLOW UP WITH [facility] IN 1-2 DAYS TO BE RECHECKED FOR COVID AND FLU QUARANTINE YOURSELF AND ALL HOUSEHOLD AND CLOSE CONTACTS UNTIL YOU ARE RECHECKED AND CLEARED BY DR. RETURN TO ER IF SYMPTOMS WORSEN ALSO FOLLOW UP WITH [facility] SOON POSSIBLE FOR FURTHER EVALUATION OF BLOOD PRESSURE All discharge instructions reviewed with patient and/or family. Voiced understanding. Scripts Ondansetron (Ondansetron Odt) 4 Mg Tab.rapdis 4 MG PO Q4H for Nausea/Vomiting, #10 TAB Prov: PANKAJ ALEXIS DO 10/10/21 Dexamethasone (Decadron) 6 Mg Tablet 6 MG PO DAILY, #10 TAB Prov: PANKAJ ALEXIS DO 10/10/21 PANKAJ ALEXIS DO Oct 09, 2021 23:56
[2021-10-10] MEDS ORDERED: DEXA6TAB6 PO (00:36)
[2021-10-10] MEDS ORDERED: ONDA4TAB11 PO (00:36)
[2021-10-10] MEDS ORDERED: predniSONE 20 MG TAB PO ONE (00:45)
[2021-10-10 00:49] VITALS: BP 157/107
== END 2021-10-10 00:49 | disposition home or self-care (01) ==
LOC: EDUNIT# 22:58 → ER 23:00
DX: J06.9 Acute upper respiratory infection, unspecified (principal); I10 Essential (primary) hypertension; E78.00 Pure hypercholesterolemia, unspecified; F17.210 Nicotine dependence, cigarettes, uncomplicated; Z20.822 Contact with and (suspected) exposure to COVID-19; Z79.899 Other long term (current) drug therapy
CPT/HCPCS: 87636; 99283

== ENCOUNTER 2022-08-26 11:06 | Emergency (ER) | payer BC ==
[~2022-08-26] VITALS: Ht 180.3 cm; Wt 89.3 kg
[~2022-08-26 11:06] MED LIST changes: +DEXA6TAB6 PO; +ONDA4TAB11 PO
--- NOTE | 2022-08-26 11:42 | ED Respiratory ---
General Chief Complaint: Respiratory Problems Stated Complaint: CHEST PAINS Source: patient, family Exam Limitations: no limitations History of Present Illness Date Seen by Provider: Aug 26, 2022 Time Seen by Provider: 11:28 Initial Comments Patient is a 52-year-old male who presents to the emergency room today with a chief complaint of concern for pneumonia. Patient has been sick for approximately a week. He was seen and treated yesterday at [facility], placed on antibiotics, amoxicillin and azithromycin. He has had 2 doses. He went to [facility] this morning to get a chest x-ray that was ordered yesterday. He states as he was getting into his car one of the nurses came out and asked him to come back again. They assessed him and told him that he needed to come to the emergency room by ambulance. He was not hypoxic at presentation. He states he has been fatigued for the last several days. He stayed basically in bed for 4 days at the beginning of the week. He complains of fever, nonproductive cough. He is a smoker. He states has not been able to smoke that much this week. He also complains of some chest tightness with the cough. It is nonradiating, does not cause nausea or sweating. He has no personal history of coronary artery disease. All other review of systems reviewed and negative except as stated. Timing/Duration: week Severity: moderate Modifying Factors: Worse With Lying Down Associated Symptoms: chest pain/soreness, cough, nasal congestion, shortness of breath, wheezing Allergies and Home Medications Allergies Coded Allergies: No Known Drug Allergies (Unverified , 08/26/22) Patient Home Medication List Home Medication List Reviewed: Yes Albuterol Sulfate (Albuterol Sulfate) 2.5 Mg/3 Ml (0.083 %) Vial.neb, 2.5 MG INH Q6H PRN for WHEEZING Prescribed by: AKILEY MENDOZA on 08/26/22 1434 Baclofen (Baclofen) 20 Mg Tablet, 20 MG PO DAILY, (Reported) Entered as Reported by: RYAN OROZCO on 12/22/18 1201 Cefuroxime Axetil (Cefuroxime) 500 Mg Tablet, 500 MG PO BID Prescribed by: MAREK KEITA on 08/24/20 2202 Dexamethasone (Decadron) 6 Mg Tablet, 6 MG PO DAILY Prescribed by: PANKAJ ALEXIS on 10/10/21 0036 Gabapentin (Gabapentin) 600 Mg Tablet, 600 MG PO TID, (Reported) Entered as Reported by: EFRAIN GASCA on 07/06/182209 Metoprolol Tartrate (Metoprolol Tartrate) 50 Mg Tablet, 75 MG PO BID, (Reported) Entered as Reported by: RYAN OROZCO on 12/22/18 1201 Nebulizer (Aeroneb Go Nebuliser) 1 Each Each, EACH MC Q6H PRN for WHEEZING, (DME) Prescribed by: KAILEY MENDOZA on 08/26/22 1434 Ondansetron (Ondansetron Odt) 4 Mg Tab.rapdis, 4 MG PO Q4H Prescribed by: PANKAJ ALEXIS on 10/10/21 003 Prednisone (Prednisone) 20 Mg Tab, 40 MG PO DAILY Prescribed by: MAREK KEITA on 08/24/20 220 Sertraline HCl (Sertraline HCl) 100 Mg Tablet, 100 MG PO DAILY, (Reported) Entered as Reported by: EFRAIN GASCA on 07/06/182210 Simvastatin (Simvastatin) 40 Mg Tablet, 40 MG PO DAILY, (Reported) Entered as Reported by: RYAN OROZCO on 12/22/18 1201 Review of Systems Review of Systems Constitutional: see HPI, malaise, weakness EENTM: no symptoms reported Respiratory: cough, phlegm, short of breath, wheezing Cardiovascular: chest pain Gastrointestinal: no symptoms reported Genitourinary: no symptoms reported Musculoskeletal: no symptoms reported Skin: no symptoms reported Psychiatric/Neurological: No Symptoms Reported All Other Systems Reviewed Negative Unless Noted: Yes Past Zgpihbr-Vpufod-Vyatgo Hx Immunizations Up To Date Tetanus Booster (TDap): Unknown Seasonal Allergies Seasonal Allergies: No Past Medical History Surgeries: Yes (LUMBAR SPINE SURGERY) Orthopedic Respiratory: No Currently Using CPAP: No Cardiac: Yes High Cholesterol, Hypertension Neurological: Yes ("RADICULAR NECK PAIN AND NEUROPATHY" PER PT ON 07/06/18) Headaches /Migraines, Neuropathy Reproductive Disorders: No Genitourinary: No Gastrointestinal: No Musculoskeletal: Yes (CHRONIC NECK AND BACK PAIN WITH RADICULOPATHY; S/P LUMBAR SPINE SURGERY) Degenerate Disk Disease, Chronic Back Pain Endocrine: No HEENT: No Cancer: No Psychosocial: No Integumentary: No Blood Disorders: No Physical Exam Vital Signs - First Documented Capillary Refill : Height: 5'11.00" Weight: 200lbs. 0.0oz. [id number]; 27.00 BMI Method:Stated General Appearance: WD/WN, no apparent distress Eyes: Bilateral Eye Normal Inspection, Bilateral Eye PERRL, Bilateral Eye EOMI HEENT: PERRL/EOMI Neck: normal inspection Respiratory: accessory muscle use (mild), rhonchi, wheezing, expiration Cardiovascular: regular rate, rhythm Gastrointestinal: non tender, soft Extremities: normal range of motion, normal inspection, no pedal edema Neurologic/Psychiatric: alert, normal mood/affect, oriented x 3 Skin: normal color, warm/dry Focused Exam Lactate Level 08/26/22 12:05: Lactic Acid Level 0.78 Lactic Acid Level Laboratory Tests Test 08/26/22 12:05 Lactic Acid Level 0.78 MMOL/L (0.50-2.00) Progress/Results/Core Measures Suspected Sepsis SIRS Temperature: Pulse: Respiratory Rate: Laboratory Tests 08/26/22 11:10: White Blood Count 12.3H Blood Pressure / Mean: 08/26/22 12:05: Lactic Acid Level 0.78 Laboratory Tests 08/26/22 11:10: Creatinine 0.94, INR Comment 1.0, Platelet Count 277, Total Bilirubin 0.5 Results/Orders Lab Results Laboratory Tests Test 08/26/22 11:10 08/26/22 12:05 08/26/22 13:50 Range/Units White Blood Count 12.3 H 4.3-11.0 10^3/uL Red Blood Count 4.58 4.30-5.52 10^6/uL Hemoglobin 13.9 13.3-17.7 g/dL Hematocrit 41 40-54 % Mean Corpuscular Volume 89 80-99 fL Mean Corpuscular Hemoglobin 30 25-34 pg Mean Corpuscular Hemoglobin Concent 34 32-36 g/dL Red Cell Distribution Width 12.0 10.0-14.5 % Platelet Count 277 130-400 10^3/uL Mean Platelet Volume 9.8 9.0-12.2 fL Immature Granulocyte % (Auto) 1 % Neutrophils (%) (Auto) 71 42-75 % Lymphocytes (%) (Auto) 17 12-44 % Monocytes (%) (Auto) 7 0-12 % Eosinophils (%) (Auto) 4 0-10 % Basophils (%) (Auto) 0 0-10 % Neutrophils # (Auto) 8.8 H 1.8-7.8 10^3/uL Lymphocytes # (Auto) 2.1 1.0-4.0 10^3/uL Monocytes # (Auto) 0.8 0.0-1.0 10^3/uL Eosinophils # (Auto) 0.5 H 0.0-0.3 10^3/uL Basophils # (Auto) 0.0 0.0-0.1 10^3/uL Immature Granulocyte # (Auto) 0.1 0.0-0.1 10^3/uL Prothrombin Time 13.2 12.2-14.7 SEC INR Comment 1.0 0.8-1.4 Activated Partial Thromboplast Time 32 24-35 SEC Sodium Level 140 135-145 MMOL/L Potassium Level 4.5 3.6-5.0 MMOL/L Chloride Level 104 98-107 MMOL/L Carbon Dioxide Level 25 21-32 MMOL/L Anion Gap 11 5-14 MMOL/L Blood Urea Nitrogen 8 7-18 MG/DL Creatinine 0.94 0.60-1.30 MG/DL Estimat Glomerular Filtration Rate 96 BUN/Creatinine Ratio 9 Glucose Level 104 70-105 MG/DL Calcium Level 10.3 H 8.5-10.1 MG/DL Corrected Calcium 8.5-10.1 MG/DL Total Bilirubin 0.5 0.1-1.0 MG/DL Aspartate Amino Transf (AST/SGOT) 18 5-34 U/L Alanine Aminotransferase (ALT/SGPT) 23 0-55 U/L Alkaline Phosphatase 91 40-136 U/L Troponin I < 0.028 <0.028 NG/ML C-Reactive Protein High Sensitivity 8.03 H 0.00-0.50 MG/DL Total Protein 7.5 6.4-8.2 GM/DL Albumin 4.6 H 3.2-4.5 GM/DL Procalcitonin 0.07 <0.10 NG/ML Lactic Acid Level 0.78 0.50-2.00 MMOL/L Urine Color YELLOW Urine Clarity CLEAR Urine pH 7.0 5-9 Urine Specific [place] 1.010 L 1.016-1.022 Urine Protein NEGATIVE NEGATIVE Urine Glucose (UA) NEGATIVE NEGATIVE Urine Ketones NEGATIVE NEGATIVE Urine Nitrite NEGATIVE NEGATIVE Urine Bilirubin NEGATIVE NEGATIVE Urine Urobilinogen 0.2 < = 1.0 MG/DL Urine Leukocyte Esterase NEGATIVE NEGATIVE Urine RBC (Auto) NEGATIVE NEGATIVE Urine RBC RARE /HPF Urine WBC NONE /HPF Urine Squamous Epithelial Cells RARE /HPF Urine Crystals NONE /LPF Urine Bacteria TRACE /HPF Urine Casts NONE /LPF Urine Mucus NEGATIVE /LPF Urine Culture Indicated NO My Orders Orders - KAILEY MENDOZA MD Cbc With Automated Diff (08/26/22 11:36) Comprehensive Metabolic Panel (08/26/22 11:36) Blood Culture (08/26/22 11:36) Sputum Culture (08/26/22 11:36) Urinalysis (08/26/22 11:36) Urine Culture (08/26/22 11:36) Protime With Inr (08/26/22 11:36) Partial Thromboplastin Time (08/26/22 11:36) Ed Iv/Invasive Line Start (08/26/22 11:36) Ed Iv/Invasive Line Start (08/26/22 11:36) Vital Signs Adult Sepsis Patie Q15M (08/26/22 11:36) O2 (08/26/22 11:36) Remove Rings In Anticipation O (08/26/22 11:36) Lactic Acid Analyzer (08/26/22 11:36) Ns Iv 1000 Ml (Sodium Chloride 0.9%) (08/26/22 11:45) Troponin I Miki (08/26/22 11:36) Procalcitonin (Pct) (08/26/22 11:36) Hs C Reactive Protein (08/26/22 11:36) Outside Films For Comparison (08/26/22 ) Albuterol Pre-Mix Nebs (Rt) (Proventil (08/26/22 12:30) Svn Small Volume Nebulizer (08/26/22 12:27) Communication For Respiratory (08/26/22 12:27) Ekg Tracing (08/26/22 12:31) Albuterol Pre-Mix Nebs (Rt) (Proventil (08/26/22 12:45) Albuterol/Ipra Inhalation Soln (Duoneb I (08/26/22 12:45) Svn Small Volume Nebulizer (08/26/22 12:39) Svn Small Volume Nebulizer (08/26/22 12:39) Albuterol Pre-Mix Nebs (Rt) (Proventil (08/26/22 12:42) Medications Given in ED Current Medications Medications Dose Ordered Sig/Gt Route Start Time Stop Time Status Last Admin Dose Admin Albuterol Sulfate 5 mg ONCE ONCE INH 08/26/22 12:45 08/26/22 12:46 DC 08/26/22 12:44 5 MG Albuterol Sulfate 7.5 mg ONCE ONCE INH 08/26/22 12:30 08/26/22 12:31 DC 08/26/22 12:44 7.5 MG Albuterol/ Ipratropium 3 ml ONCE ONCE INH 08/26/22 12:45 08/26/22 12:46 DC 08/26/22 12:44 3 ML Vital Signs/I&O 08/26/22 08/26/22 08/26/22 11:10 11:10 12:45 Temp 36.4 Pulse 80 Resp 20 B/P (MAP) 156/102 (120) Pulse Ox 94 96 O2 Delivery Room Air Room Air Room Air Capillary Refill : Progress Note : Time: 14:26 Progress Note Patient reevaluated, resting comfortably. He has had an hour long albuterol breathing treatment with 1 DuoNeb. He feels better oxygen saturations are 92 to 95% on room air. No increased work of breathing/respiratory distress is noted. Labs are reassuring. He has Augmentin and azithromycin antibiotics to continue. He also has a prescription for steroids. He likely has pneumonia but it is not visible on his chest x-ray which has been obtained from [facility]. He is asking for a nebulizer, I will prescribe 1 for him as well as some albuterol for the machine. No clinical or objective findings for sepsis, consolidative pneumonia, pneumothorax, acute cardiopulmonary issues. No concern for STEMI with the chest pain I believe this is all related to coughing, COPD, infection. Return precautions discussed with the patient and his daughter who is at the bedside. All questions are sought and answered. Patient is stable for discharge. ECG Initial ECG Impression Date: Aug 26, 2022 Initial ECG Impression Time: 11:34 Initial ECG Rhythm: Normal Sinus Initial ECG Intervals NE interval 179 QRS 105 QTc 383 Initial ECG Impression: Nonspecific Changes Comment No ST segment elevation or depression. No ectopy. Borderline prolonged QRS interval Q waves inferior Diagnostic Imaging Diagonstic Imaging: Xray Comments Chest x-ray from this morning, [facility] clinic reveals COPD changes to the lungs, normal mediastinal structures, no consolidative process Departure Impression Primary Impression: COPD (chronic obstructive pulmonary disease) Qualified Codes: J44.9 - Chronic obstructive pulmonary disease, unspecified Additional Impression: Bronchitis Disposition: 01 HOME, SELF-CARE Condition: Improved Departure-Patient Inst. Decision time for Depature: 14:29 Referrals: [facility] (PCP) Primary Care Physician TY CARRILLO (Family) Primary Care Physician Patient Instructions: COPD Exacerbation, Adult ED, Acute Bronchitis Add. Discharge Instructions: You likely do have pneumonia but with some dehydration it is not visible on the chest x-ray. Continue the antibiotics as prescribed which will treat pneumonia/bronchitis. Finish the entire course of antibiotics. Use the nebulizer every 6 hours over the course of the next 2 to 3 days, the inhalers in between as needed. Start the steroids and finish as directed. If you continue to have high fever, have worsening cough or shortness of breath after being on the antibiotics 48 hours please come back to the emergency room for reevaluation. Follow-up with [facility] in 10 days to 2 weeks. You really should try and quit smoking. Scripts Nebulizer (Aeroneb Go Nebuliser) 1 Each Each EACH MC Q6H PRN for WHEEZING, #1 Nebulize albuterol every 6 hours Prov: KAILEY MENDOZA MD 08/26/22 Albuterol Sulfate (Albuterol Sulfate) 2.5 Mg/3 Ml (0.083 %) Vial.neb 2.5 MG INH Q6H PRN for WHEEZING, #50 EA 1 Refill Prov: KAILEY MENDOZA MD 08/26/22 Copy Copies To 1: KAMILAH EDGE KATHRYN M MD Aug 26, 2022 11:42
[2022-08-26] MEDS ORDERED: NS IV 1000 ML 1,000 ML IV SCH (11:45)
[2022-08-26 11:47] LABS: BASOPHILS % (AUTO) 0 % (0-10); EOSINOPHILS # (AUTO) 0.5 10^3/uL (0.0-0.3); EOSINOPHILS % (AUTO) 4 % (0-10); HEMATOCRIT 41 % (40-54); HEMOGLOBIN 13.9 g/dL (13.3-17.7); LYMPHOCYTES # (AUTO) 2.1 10^3/uL (1.0-4.0); LYMPHOCYTES % (AUTO) 17 % (12-44); MEAN CORPUSCULAR HEMOGLOBIN 30 pg (25-34); MEAN CORPUSCULAR HGB CONC 34 g/dL (32-36); MEAN CORPUSCULAR VOLUME 89 fL (80-99); MEAN PLATELET VOLUME 9.8 fL (9.0-12.2); MONOCYTES # (AUTO) 0.8 10^3/uL (0.0-1.0); MONOCYTES % (AUTO) 7 % (0-12); NEUTROPHILS # (AUTO) 8.8 10^3/uL (1.8-7.8); NEUTROPHILS % (AUTO) 71 % (42-75); PLATELET COUNT 277 10^3/uL (130-400); WHITE BLOOD COUNT 12.3 10^3/uL (4.3-11.0)
[2022-08-26 11:50] LABS: ALBUMIN 4.6 GM/DL (3.2-4.5)
[2022-08-26 11:51] LABS: CHLORIDE 104 MMOL/L (98-107); POTASSIUM 4.5 MMOL/L (3.6-5.0); SODIUM 140 MMOL/L (135-145)
[2022-08-26 11:52] LABS: CALCIUM 10.3 MG/DL (8.5-10.1)
[2022-08-26 11:53] LABS: GLUCOSE 104 MG/DL (70-105); PROTHROMBIN TIME PATIENT 13.2 SEC (12.2-14.7); TOTAL PROTEIN 7.5 GM/DL (6.4-8.2)
[2022-08-26 11:54] LABS: CARBON DIOXIDE 25 MMOL/L (21-32)
[2022-08-26 11:55] LABS: BILIRUBIN,TOTAL 0.5 MG/DL (0.1-1.0)
[2022-08-26 11:56] LABS: ALKALINE PHOSPHATASE 91 U/L (40-136)
[2022-08-26 11:57] LABS: CREATININE SERUM 0.94 MG/DL (0.60-1.30); GFR ESTIMATED 96
[2022-08-26 11:58] LABS: BUN/CREATININE RATIO 9
[2022-08-26 12:00] LABS: ALANINE AMINOTRANSFERASE 23 U/L (0-55)
[2022-08-26] MEDS ORDERED: RT-ALBUTEROL SULF 2.5 MG/3 ML PRE-MIX VIAL INH ONE ×2 (12:30→12:45)
[2022-08-26] MEDS ORDERED: RT-ALBUTEROL SULF 2.5 MG/3 ML PRE-MIX VIAL ONE (12:42)
[2022-08-26] MEDS ORDERED: RT-ALBUTEROL/IPRATROPIUM 3 ML (DUONEB) VIAL INH ONE (12:45)
[2022-08-26 14:09] LABS: BILIRUBIN,URINE NEGATIVE (NEGATIVE); CLARITY,URINE CLEAR; COLOR,URINE YELLOW; GLUCOSE, URINE (UA) NEGATIVE (NEGATIVE); KETONES,URINE NEGATIVE (NEGATIVE); LEUKOCYTE ESTERASE ,URINE NEGATIVE (NEGATIVE); NITRITE,URINE NEGATIVE (NEGATIVE); PROTEIN,URINE NEGATIVE (NEGATIVE)
[2022-08-26 14:29] LABS: BACTERIA,URINE TRACE /HPF; RBC,URINE RARE /HPF; SQUAMOUS EPITHELIAL CELL,UR RARE /HPF
[2022-08-26] MEDS ORDERED: ALBU2.5V4 INH (14:34)
[2022-08-26] MEDS ORDERED: NEBU-140 MC (14:34)
[2022-08-26 14:47] VITALS: BP 117/95
== END 2022-08-26 14:53 | disposition home or self-care (01) ==
LOC: EDUNIT# 11:06 → ER 11:07
DX: J44.9 Chronic obstructive pulmonary disease, unspecified (principal); Z28.310 Unvaccinated for COVID-19
CPT/HCPCS: 36415; 80053; 81000; 83605; 84145; 84484; 85025; 85610; 85730; 86141; 87040; 87088; 93005; 94640

== ENCOUNTER 2022-08-30 17:44 | Emergency (ER) | payer BC ==
[~2022-08-30] VITALS: Ht 180.3 cm; Wt 88.9 kg
[~2022-08-30 17:44] MED LIST changes: +ALBU2.5V4 INH; +NEBU-140 MC
[2022-08-30] MEDS ORDERED: BACITRACIN OINTMENT 28 GM TUBE TOP STA (18:05)
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
[2022-08-30] MEDS ORDERED: ACHD5005 PO (18:14)
[2022-08-30] MEDS ORDERED: IBUPROFEN 600 MG (MOTRIN) TAB PO ONE (18:15)
[2022-08-30] MEDS ORDERED: TETANUS,DIPTH,PERTUSS P/F (BOOSTRIX) 0.5 ML VIAL IM ONE (18:15)
[2022-08-30 18:30] VITALS: BP 152/105
== END 2022-08-30 18:30 | disposition home or self-care (01) ==
LOC: EDUNIT# 17:44 → ER 17:46
DX: T22.212A Burn of second degree of left forearm, initial encounter (principal); T31.0 Burns involving less than 10% of body surface; F17.210 Nicotine dependence, cigarettes, uncomplicated; X04.XXXA Exposure to ignition of highly flammable material, initial encounter
CPT/HCPCS: 90715; 99284

== ENCOUNTER → 2022-08-31 | Outpatient (CLI) | payer BC ==
[~2022-08-31] MED LIST changes: +ACHD5005 PO
== END ==
LOC: WOUNDCARE 13:07
PROVIDERS: ATTEND Family Medicine
DX: T22.112A Burn of first degree of left forearm, initial encounter (principal); T31.0 Burns involving less than 10% of body surface; Y93.G9 Activity, other involving cooking and grilling; F17.210 Nicotine dependence, cigarettes, uncomplicated
CPT/HCPCS: 99212

== ENCOUNTER 2023-02-15 14:33 | Emergency (ER) | payer BC ==
[~2023-02-15] VITALS: Ht 180.3 cm; Wt 92.1 kg
[2023-02-15 14:55] LABS: BASOPHILS % (AUTO) 0 % (0-10); EOSINOPHILS # (AUTO) 0.2 10^3/uL (0.0-0.3); EOSINOPHILS % (AUTO) 2 % (0-10); HEMATOCRIT 41 % (40-54); HEMOGLOBIN 14.1 g/dL (13.3-17.7); LYMPHOCYTES # (AUTO) 1.9 X 10^3 (1.0-4.0); LYMPHOCYTES % (AUTO) 16 % (12-44); MEAN CORPUSCULAR HEMOGLOBIN 30 pg (25-34); MEAN CORPUSCULAR HGB CONC 34 g/dL (32-36); MEAN CORPUSCULAR VOLUME 88 fL (80-99); MEAN PLATELET VOLUME 9.6 fL (9.0-12.2); MONOCYTES # (AUTO) 0.5 X 10^3 (0.0-1.0); MONOCYTES % (AUTO) 5 % (0-12); NEUTROPHILS # (AUTO) 9.1 X 10^3 (1.8-7.8); NEUTROPHILS % (AUTO) 77 % (42-75); PLATELET COUNT 269 10^3/uL (130-400); WHITE BLOOD COUNT 11.8 10^3/uL (4.3-11.0)
[2023-02-15] MEDS ORDERED: RT-ALBUTEROL/IPRATROPIUM 3 ML (DUONEB) VIAL INH ONE (15:00)
[2023-02-15 15:02] LABS: ALBUMIN 4.6 GM/DL (3.2-4.5); CHLORIDE 104 MMOL/L (98-107); POTASSIUM 3.9 MMOL/L (3.6-5.0); SODIUM 137 MMOL/L (135-145)
[2023-02-15 15:03] LABS: INR 0.9 (0.8-1.4); PROTHROMBIN TIME PATIENT 12.3 SEC (12.2-14.7)
[2023-02-15 15:04] LABS: CALCIUM 9.8 MG/DL (8.5-10.1)
[2023-02-15 15:05] LABS: GLUCOSE 91 MG/DL (70-105)
[2023-02-15 15:06] LABS: CARBON DIOXIDE 21 MMOL/L (21-32)
--- NOTE | 2023-02-15 15:06 | Diagnostic Imaging Report ---
INDICATION: Chest pain. COMPARISON: 08/26/2022. FINDINGS: The lungs are clear. There is no failure, effusion, or pneumothorax. IMPRESSION: No acute appearing abnormality. Dictated by: Dictated on workstation # [id number]
[2023-02-15 15:07] LABS: BILIRUBIN,TOTAL 0.4 MG/DL (0.1-1.0)
--- NOTE | 2023-02-15 15:07 | ED Chest Pain ---
General Chief Complaint: Cardiac/General Problems Stated Complaint: CHEST PAINS Nursing Triage Note: PT TO ED BY EMS FROM [facility] WITH C/O CP. MID STERNAL CP RADIATING TO L SHOULDER AND ARM BEGINNING TUESDAY WHILE WORKING ON A FORKLIFT. PAIN WORSE WHEN LAYING FLAT AND WITH EXERTION. PT ALSO REPORTS SOB. PT GIVEN 324 MG ASA BY [facility]. Source: patient Exam Limitations: no limitations (PAUL CASTLE APRN) History of Present Illness Date Seen by Provider: Feb 15, 2023 Time Seen by Provider: 14:42 Initial Comments 52-year-old male presents to the ED via EMS from the [facility] clinic for chest pain which started on Tuesday, 02/11. He reports he also had a runny nose and phlegm when the chest pain started. He thought he had a chest cold. He reports the phlegm has changed from yellow to dark green. Patient reports the chest pain has been constant since Tuesday, but fluctuates in intensity. Reports it is worse at night, also reports shortness of breath when trying to lay flat. Denies any lower extremity edema. States the pain feels like a pressure as well as a stabbing pain. States that this morning around 10 or 10:30 AM he was doing some yard work and had worsening of the chest pain which then radiated into the left shoulder. Reports shortness of air with pain as well. Denies diaphoresis, nausea or vomiting with the pain. He states that he has been doing a lot of yard work recently, states that it is possible that this is a musculoskeletal injury. He also reports that he has been having headaches over the last few weeks, states he normally does not get headaches. Denies a current headache. Reports history of high blood pressure, but states he does not take any medications for it currently. His blood pressure is slightly elevated now. He reports that he smokes about a half a pack of cigarettes a day. He drinks 3-4 beers a night after work, states he drinks more on the weekends. Denies any drug use. Past medical history includes neuropathy, spinal stenosis, depression. Denies history of COPD, but states that his primary wants to test him for it. (PAUL CASTLE APRN) Allergies and Home Medications Allergies Coded Allergies: No Known Drug Allergies (Unverified , 08/26/22) Patient Home Medication List Home Medication List Reviewed: Yes (PAUL CASTLE APRN) Albuterol Sulfate (Albuterol Sulfate) 2.5 Mg/3 Ml (0.083 %) Vial.neb, 2.5 MG INH Q6H PRN for WHEEZING Prescribed by: KAILEY MENDOZA on 08/26/22 1434 Baclofen (Baclofen) 20 Mg Tablet, 20 MG PO DAILY, (Reported) Entered as Reported by: RYAN OROZCO on 12/22/18 1201 Cefuroxime Axetil (Cefuroxime) 500 Mg Tablet, 500 MG PO BID Prescribed by: MAREK KEITA on 08/24/202201 Dexamethasone (Decadron) 6 Mg Tablet, 6 MG PO DAILY Prescribed by: PANKAJ ALEXIS on 10/10/21 0036 Gabapentin (Gabapentin) 600 Mg Tablet, 600 MG PO TID, (Reported) Entered as Reported by: EFRAIN GASCA on 07/06/182209 Hydrocodone Bit/Acetaminophen (HYDROcodone/APAP 5 MG/325 MG TAB) 1 Tab Tab, 1 TAB PO Q8H Prescribed by: VIKI GLEASON on 08/30/22 1814 Metoprolol Tartrate (Metoprolol Tartrate) 50 Mg Tablet, 75 MG PO BID, (Reported) Entered as Reported by: RYAN OROZCO on 12/22/18 120 Nebulizer (Aeroneb Go Nebuliser) 1 Each Each, EACH MC Q6H PRN for WHEEZING, (DME) Prescribed by: KAILEY MENDOZA on 08/26/22 1434 Ondansetron (Ondansetron Odt) 4 Mg Tab.rapdis, 4 MG PO Q4H Prescribed by: PANKAJ ALEXIS on 10/10/21 0036 Prednisone (Prednisone) 20 Mg Tab, 40 MG PO DAILY Prescribed by: MAREK KEITA on 08/24/202201 Sertraline HCl (Sertraline HCl) 100 Mg Tablet, 100 MG PO DAILY, (Reported) Entered as Reported by: EFRAIN GASCA on 07/06/182210 Simvastatin (Simvastatin) 40 Mg Tablet, 40 MG PO DAILY, (Reported) Entered as Reported by: RYAN OROZCO on 12/22/18 120 Review of Systems Review of Systems Constitutional: see HPI (PAUL CASTLE APRN) Past Bzwnfqs-Unjyza-Triopk Hx Patient Social History Tobacco Use?: Yes Tobacco type used: Cigarettes Use of E-Cig and/or Vaping dev: No Substance use?: No Alcohol Use?: Yes Alcohol type: Beer Alcohol Frequency: Daily Pt feels they are or have been: No (PAUL CASTLE APRN) Immunizations Up To Date Tetanus Booster (TDap): Unknown Influenza Vaccine Up-to-Date: Yes; Up-to-Date First/Initial COVID19 Vaccinat: N/A Second COVID19 Vaccination Yonatan: 2020 Third COVID19 Vaccination Date: 2020 (PAUL CASTLE APRN) Seasonal Allergies Seasonal Allergies: No (PAUL CASTLE APRN) Past Medical History Surgery/Hospitalization HX: NEUROPATHY, SPINAL STENOSIS Surgeries: Yes (LUMBAR SPINE SURGERY) Orthopedic Respiratory: No Currently Using CPAP: No Cardiac: Yes High Cholesterol, Hypertension Neurological: Yes ("RADICULAR NECK PAIN AND NEUROPATHY" PER PT ON 07/06/18) Headaches /Migraines, Neuropathy Reproductive Disorders: No Genitourinary: No Gastrointestinal: No Musculoskeletal: Yes (CHRONIC NECK AND BACK PAIN WITH RADICULOPATHY; S/P LUMBAR SPINE SURGERY) Degenerate Disk Disease, Chronic Back Pain Endocrine: No HEENT: No Cancer: No Psychosocial: No Integumentary: No Blood Disorders: No (PAUL CASTLE APRN) Physical Exam Vital Signs Vital Signs - First Documented 02/15/23 14:36 Temp 36.4 Pulse 84 Resp 20 B/P (MAP) 162/102 (122) Pulse Ox 96 O2 Delivery Room Air (EDEL BUTTS MD) Vital Signs Capillary Refill : Less Than 3 Seconds (PAUL CASTLE APRN) Height, Weight, BMI Height: 5'11.00" Weight: 200lbs. 0.0oz. 90.219253er; 28.00 BMI Method:Stated General Appearance: No Apparent Distress, WD/WN Neck: Non Tender, Supple Respiratory: No Accessory Muscle Use, No Respiratory Distress, Wheezing (Slight expiratory wheeze in bilateral lower lobes), Other (Chest and left shoulder are tender to palpation) Cardiovascular: Regular Rate, Rhythm, No Edema, No Gallop, No JVD, No Murmur Extremity: Normal Inspection, Normal Range of Motion Neurologic/Psychiatric: Alert, Normal Mood/Affect Skin: Normal Color, Warm/Dry (PAUL CASTLE APRN) Progress/Results/Core Measures Results/Orders Lab Results Laboratory Tests Test 02/15/23 14:40 02/15/23 15:15 Range/Units White Blood Count 11.8 H 4.3-11.0 10^3/uL Red Blood Count 4.67 4.30-5.52 10^6/uL Hemoglobin 14.1 13.3-17.7 g/dL Hematocrit 41 40-54 % Mean Corpuscular Volume 88 80-99 fL Mean Corpuscular Hemoglobin 30 25-34 pg Mean Corpuscular Hemoglobin Concent 34 32-36 g/dL Red Cell Distribution Width 12.5 10.0-14.5 % Platelet Count 269 130-400 10^3/uL Mean Platelet Volume 9.6 9.0-12.2 fL Immature Granulocyte % (Auto) 0 % Neutrophils (%) (Auto) 77 H 42-75 % Lymphocytes (%) (Auto) 16 12-44 % Monocytes (%) (Auto) 5 0-12 % Eosinophils (%) (Auto) 2 0-10 % Basophils (%) (Auto) 0 0-10 % Neutrophils # (Auto) 9.1 H 1.8-7.8 X 10^3 Lymphocytes # (Auto) 1.9 1.0-4.0 X 10^3 Monocytes # (Auto) 0.5 0.0-1.0 X 10^3 Eosinophils # (Auto) 0.2 0.0-0.3 10^3/uL Basophils # (Auto) 0.0 0.0-0.1 10^3/uL Immature Granulocyte # (Auto) 0.0 0.0-0.1 10^3/uL Prothrombin Time 12.3 12.2-14.7 SEC INR Comment 0.9 0.8-1.4 Activated Partial Thromboplast Time 32 24-35 SEC D-Dimer <= 0.27 0.00-0.49 UG/ML Sodium Level 137 135-145 MMOL/L Potassium Level 3.9 3.6-5.0 MMOL/L Chloride Level 104 98-107 MMOL/L Carbon Dioxide Level 21 21-32 MMOL/L Anion Gap 12 5-14 MMOL/L Blood Urea Nitrogen 7 7-18 MG/DL Creatinine 0.80 0.60-1.30 MG/DL Estimat Glomerular Filtration Rate 105 BUN/Creatinine Ratio 9 Glucose Level 91 70-105 MG/DL Calcium Level 9.8 8.5-10.1 MG/DL Corrected Calcium 8.5-10.1 MG/DL Magnesium Level 2.2 1.6-2.4 MG/DL Total Bilirubin 0.4 0.1-1.0 MG/DL Aspartate Amino Transf (AST/SGOT) 20 5-34 U/L Alanine Aminotransferase (ALT/SGPT) 21 0-55 U/L Alkaline Phosphatase 103 40-136 U/L Troponin I < 0.028 <0.028 NG/ML B-Type Natriuretic Peptide < 10.0 <100.0 PG/ML Total Protein 7.0 6.4-8.2 GM/DL Albumin 4.6 H 3.2-4.5 GM/DL Influenza Type A (RT-PCR) Not Detected Not Detecte Influenza Type B (RT-PCR) Not Detected Not Detecte SARS-CoV-2 RNA (RT-PCR) Not Detected Not Detecte (EDEL BUTTS MD) Vital Signs/I&O 02/15/23 02/15/23 02/15/23 14:36 15:16 17:25 Temp 36.4 Pulse 84 72 Resp 20 18 B/P (MAP) 162/102 (122) 150/86 Pulse Ox 96 96 96 O2 Delivery Room Air Room Air Room Air (EDEL BUTTS MD) Blood Pressure Mean: 122 Progress Progress Note : Time: 15:08 Progress Note Patient seen and evaluated, resting comfortably in bed, no acute distress. Based on exam and symptoms, work-up initiated including CBC, CMP, magnesium, coags, troponin, BNP, chest x-ray. Patient was given 4 baby aspirin's by [facility]. 1559 Labs and x-ray reviewed. CBC shows slightly elevated WBCs 11.8, slightly elevated neutrophil percentage 77. CMP grossly normal. Magnesium normal 2.2. Troponin negative. BNP negative. Coags normal. COVID and flu negative. Chest x-ray shows no acute abnormality. Patient's O2 dropped to 88 to 89% on room air after breathing treatment. It came up on its own to low 90s. D-dimer added at this time. 1700 D-dimer negative. O2 has improved to mid 90s. Results discussed with patient. Pain is likely muscular in nature. Patient reports improvement of pain after Toradol and Norflex. Discharge directions and return precautions provided. (PAUL CASTLE APRN) Initial ECG Impression Date: Feb 15, 2023 Initial ECG Impression Time: 14:40 Initial ECG Rate: 82 Initial ECG Rhythm: Normal Sinus Initial ECG Intervals: Normal Initial ECG Impression: Normal Initial ECG Comparisson: Unchanged (PAUL CASTLE APRN) Departure Impression Primary Impression: Chest wall pain Disposition: HOME, SELF-CARE Condition: Improved Departure-Patient Inst. Decision time for Depature: 17:00 (PAUL CASTLE APRN) Referrals: [facility] (PCP/Family) Primary Care Physician Patient Instructions: Chest Pain (DC) Add. Discharge Instructions: Call your primary care provider tomorrow to schedule an appointment for this week or next week. You should be tested for COPD. You may use your albuterol as needed for shortness of breath. You may take 800 mg of ibuprofen every 8 hours with food as needed for pain. Return for continued chest pain, worsening shortness of breath, or any other new, concerning, or worsening symptoms. All discharge instructions reviewed with patient and/or family. Voiced understanding. ATTENDING PHYSICIAN NOTE: I was physically present as attending physician in the emergency department chetan ng the care of this patient, but I was not directly involved in the decision making or delivery of care for this patient. (EDEL BUTTS MD) PAUL CASTLE APRN Feb 15, 2023 15:07 EDEL BUTTS MD Feb 16, 2023 20:27
[2023-02-15 15:08] LABS: ALKALINE PHOSPHATASE 103 U/L (40-136); GFR ESTIMATED 105
[2023-02-15 15:09] LABS: BUN/CREATININE RATIO 9
[2023-02-15 15:11] LABS: ALANINE AMINOTRANSFERASE 21 U/L (0-55); MAGNESIUM 2.2 MG/DL (1.6-2.4)
[2023-02-15] MEDS ORDERED: ORPHENADRINE 60 MG/2 ML (NORFLEX) AMP (ED ONLY) IV ONE (15:45)
[2023-02-15] MEDS ORDERED: KETOROLAC 30 MG/ML VIAL IVP ONE (15:45)
[2023-02-15 17:25] VITALS: BP 150/86
== END 2023-02-15 17:25 | disposition home or self-care (01) ==
LOC: EDUNIT# 14:33 → ER 14:34
DX: R07.89 Other chest pain (principal); R06.02 Shortness of breath; M25.512 Pain in left shoulder; F17.210 Nicotine dependence, cigarettes, uncomplicated; Z20.822 Contact with and (suspected) exposure to COVID-19
CPT/HCPCS: 36415; 71045; 80053; 83735; 83880; 84484; 85025; 85379; 85610; 85730; 87636; 93005; 93041; 94640; 94664

== ENCOUNTER 2023-04-16 21:30 | Emergency (ER) | payer BC ==
[~2023-04-16] VITALS: Ht 180.3 cm; Wt 88.9 kg
[2023-04-16 21:36] VITALS: BP 134/92
--- NOTE | 2023-04-16 22:35 | ED Lower Extremity ---
General Chief Complaint: Lower Extremity Stated Complaint: RIGHT PAIN AND LEG PAIN Nursing Triage Note: PT TO RM 6 VIA WC W C/O R LEG PAIN THAT BEGINS AT HIS BUTTOCKS AND RADIATES DOWN TO HIS FOOT. PT REPORTS HE LEAPED OFF OF A PORCH ON TUESDAY IN ATTEMPT TO CATCH HIS CAT, PAIN W AMBULATION BEGAN YESTERDAY. PT A&OX4. History of Present Illness Date Seen by Provider: Apr 16, 2023 Time Seen by Provider: 22:25 Initial Comments Patient is a 52-year-old male who presents to the emergency room with a chief complaint of right posterior pelvic pain, hip pain and thigh pain. He jumped off of a porch 2 nights ago to catch his cat. He states he was fine that evening but as the days have progressed he has had worsening pain radiating from the buttock down the back of the leg into the posterior knee. He denies weakness or numbness. Movement, ambulation make it worse, nothing makes it much better. He has tried 800 mg ibuprofen twice without any relief. He has had prior back surgery. He denies any incontinence of bowel or bladder. No numbness in the groin or perineum. Using a cane to walk. Onset: other (2 days ago) Severity: moderate Pain/Injury Location: right hip, right leg, right knee Method of Injury: other (jumped off a porch) Modifying Factors: Improves With Immobilization; Worse With Movement Allergies and Home Medications Allergies Coded Allergies: No Known Drug Allergies (Unverified , 08/26/22) Patient Home Medication List Home Medication List Reviewed: Yes Albuterol Sulfate (Albuterol Sulfate) 2.5 Mg/3 Ml (0.083 %) Vial.neb, 2.5 MG INH Q6H PRN for WHEEZING Prescribed by: KAILEY MENDOZA on 08/26/22 1434 Baclofen (Baclofen) 20 Mg Tablet, 20 MG PO DAILY, (Reported) Entered as Reported by: RYAN OROZCO on 12/22/18 1201 Cefuroxime Axetil (Cefuroxime) 500 Mg Tablet, 500 MG PO BID Prescribed by: MAREK KEITA on 08/24/20 220 Dexamethasone (Decadron) 6 Mg Tablet, 6 MG PO DAILY Prescribed by: PANKAJ ALEXIS on 10/10/21 0036 Gabapentin (Gabapentin) 600 Mg Tablet, 600 MG PO TID, (Reported) Entered as Reported by: EFRAIN GASCA on 07/06/182209 Hydrocodone Bit/Acetaminophen (HYDROcodone/APAP 5 MG/325 MG TAB) 1 Tab Tab, 1 TAB PO Q8H Prescribed by: VIKI GLEASON on 08/30/22 1814 Metoprolol Tartrate (Metoprolol Tartrate) 50 Mg Tablet, 75 MG PO BID, (Reported) Entered as Reported by: RYAN OROZCO on 12/22/18 1201 Nebulizer (Aeroneb Go Nebuliser) 1 Each Each, EACH MC Q6H PRN for WHEEZING, (DME) Prescribed by: KAILEY MENDOZA on 08/26/22 1434 Ondansetron (Ondansetron Odt) 4 Mg Tab.rapdis, 4 MG PO Q4H Prescribed by: PANKAJ ALEXIS on 10/10/21 0036 Prednisone (Prednisone) 20 Mg Tab, 40 MG PO DAILY Prescribed by: MAREK KEITA on 08/24/202201 Sertraline HCl (Sertraline HCl) 100 Mg Tablet, 100 MG PO DAILY, (Reported) Entered as Reported by: EFRAIN GASCA on 07/06/182210 Simvastatin (Simvastatin) 40 Mg Tablet, 40 MG PO DAILY, (Reported) Entered as Reported by: RYAN OROZCO on 12/22/18 1201 Review of Systems Constitutional: see HPI EENTM: nose congestion, other ("sinus infection") Respiratory: no symptoms reported Cardiovascular: no symptoms reported Gastrointestinal: no symptoms reported Genitourinary: no symptoms reported Musculoskeletal: joint pain (right posterior hip, leg and knee) Skin: no symptoms reported Psychiatric/Neurological: No Symptoms Reported All Other Systems Reviewed Negative Unless Noted: Yes Past Yllqala-Cbeyll-Lpnjon Hx Patient Social History Tobacco Use?: Yes Tobacco type used: Cigarettes Smoking Status: Current Everyday Smoker Use of E-Cig and/or Vaping dev: No Substance use?: No Alcohol Use?: Yes Alcohol type: Beer Alcohol Frequency: Once in a while Immunizations Up To Date Tetanus Booster (TDap): Unknown First/Initial COVID19 Vaccinat: N/A Second COVID19 Vaccination Yonatan: 2020 Third COVID19 Vaccination Date: 2020 Seasonal Allergies Seasonal Allergies: No Past Medical History Surgery/Hospitalization HX: NEUROPATHY, SPINAL STENOSIS Surgeries: Yes (LUMBAR SPINE SURGERY) Orthopedic Respiratory: No Currently Using CPAP: No Cardiac: Yes High Cholesterol, Hypertension Neurological: Yes ("RADICULAR NECK PAIN AND NEUROPATHY" PER PT ON 07/06/18) Headaches /Migraines, Neuropathy Reproductive Disorders: No Genitourinary: No Gastrointestinal: No Musculoskeletal: Yes (CHRONIC NECK AND BACK PAIN WITH RADICULOPATHY; S/P LUMBAR SPINE SURGERY) Degenerate Disk Disease, Chronic Back Pain Endocrine: No HEENT: No Cancer: No Psychosocial: No Integumentary: No Blood Disorders: No Physical Exam Vital Signs Vital Signs - First Documented 04/16/23 21:36 Temp 36.3 Pulse 87 Resp 20 B/P (MAP) 134/92 (106) Pulse Ox 96 O2 Delivery Room Air Capillary Refill : Less Than 3 Seconds Height, Weight, BMI Height: 5'11.00" Weight: 200lbs. 0.0oz. 90.868303xk; 27.00 BMI Method:Stated General Appearance: WD/WN, no apparent distress HEENT: PERRL/EOMI Cardiovascular: regular rate, rhythm Respiratory: lungs clear, normal breath sounds, no respiratory distress, no accessory muscle use Gastrointestinal: non tender, soft Progress/Results/Core Measures Results/Orders My Orders Orders - KAILEY MENDOZA MD Pelvis With Right Hip 2-3views (04/16/23 22:35) Hydrocodone/Apap 7.5/325 Tab (Lortab 7. (04/16/23 22:45) Prednisone Tablet (Deltasone Tablet) (04/16/23 22:45) Medications Given in ED Current Medications Medications Dose Ordered Sig/Gt Route Start Time Stop Time Status Last Admin Dose Admin Acetaminophen/ Hydrocodone Bitart 1 ea ONCE ONCE PO 04/16/23 22:45 04/16/23 22:46 DC 04/16/23 22:42 1 EA Prednisone 50 mg ONCE ONCE PO 04/16/23 22:45 04/16/23 22:46 DC 04/16/23 22:42 50 MG Vital Signs/I&O 04/16/23 21:36 Temp 36.3 Pulse 87 Resp 20 B/P (MAP) 134/92 (106) Pulse Ox 96 O2 Delivery Room Air Blood Pressure Mean: 106 Diagnostic Imaging Diagonstic Imaging: Xray Comments Pelvis right hip x-ray -independently reviewed and interpreted by me -no fracture or dislocation Departure Impression Primary Impression: Sciatica of right side Disposition: 01 HOME, SELF-CARE Condition: Improved Departure-Patient Inst. Decision time for Depature: 23:11 Referrals: [facility] [place] (PCP/Family) Primary Care Physician СВЕТЛАНА HURTADO MD Patient Instructions: Sciatica ED Add. Discharge Instructions: Alternate heat and ice to the sore areas of your right hip and back. Take the prednisone as directed. Hydrocodone 5 mg 1 every 6 hours as needed for pain. Continue your baclofen as needed for muscle spasm. You should also continue to use your ibuprofen every 8 hours. Always take ibuprofen with food. A lidocaine patch which you can get [id number] at [facility] may also help with discomfort. Follow-up with in 1 week if symptoms are not improving. Scripts Hydrocodone/Acetaminophen (Hydrocodone-Acetamin 5-325 mg) 5 Mg-325 Mg Tablet 1 TAB PO Q6H PRN for PAIN-MODERATE (5-7), #8 TAB Prov: KAILEY MENDOZA MD 04/16/23 Prednisone (Prednisone) 10 Mg Tab.ds.pk 10 MG PO DAILY, #21 EA Take 6 tabs(60mg)daily,decrease by 1 tab(10MG)daily. Prov: KAILEY MENDOZA MD 04/16/23 Copy Copies To 1: СВЕТЛАНА HURTADO MD, KATHRYN M MD Apr 16, 2023 22:35
[2023-04-16] MEDS ORDERED: HYDROcodone/APAP 7.5 MG/325 MG (LORTAB, LORCET PLUS) TABLET PO ONE (22:45)
[2023-04-16] MEDS ORDERED: predniSONE 20 MG TAB PO ONE (22:45)
[2023-04-16] MEDS ORDERED: ACHD5005 PO (23:14)
[2023-04-16] MEDS ORDERED: PRED10TA22 PO (23:14)
--- NOTE | 2023-04-17 07:17 | Diagnostic Imaging Report ---
HISTORY: Right hip pain after injury. TECHNIQUE: Frontal view the pelvis. Frontal and lateral views of the right hip. COMPARISON: None. FINDINGS: No acute fracture is seen in the pelvis or right hip. Alignment is normal. Joint spaces appear preserved. IMPRESSION: No acute osseous abnormality is seen in the pelvis or right hip. Dictated by: Dictated on workstation # [id number]
== END 2023-04-16 23:34 | disposition home or self-care (01) ==
LOC: EDUNIT# 21:30 → ER 21:33
DX: M54.31 Sciatica, right side (principal); M25.551 Pain in right hip; F17.210 Nicotine dependence, cigarettes, uncomplicated; X58.XXXA Exposure to other specified factors, initial encounter; Y92.89 Other specified places as the place of occurrence of the external cause; Y93.39 Activity, other involving climbing, rappelling and jumping off

== ENCOUNTER → 2023-05-10 | Outpatient (CLI) | payer BC ==
--- NOTE | 2023-05-10 10:20 | Diagnostic Imaging Report ---
CLINICAL INDICATION: Attention to right hip. Patient fell off of step and landed on right hip. Since then has been painful to walk. Pain is mainly on outer leg radiating down the leg. EXAM: Axial CT scan of the pelvis and right hip performed without IV contrast. Sagittal and coronal reformatted images were created. COMPARISON: X-ray pelvis dated 04/16/2023. FINDINGS: There is no acute fracture or dislocation involving the pelvis or right hip. There is no significant soft tissue abnormality adjacent to the hip or pelvis. There are small degenerative spurs involving both acetabular regions and the right femoral head/neck junction region. There is mild sclerosis of the sacroiliac joints. There are degenerative spurs involving the lower lumbar spine. There is partially visualized grade 1 retrolisthesis of L4 on L5. Limited visualization of the intrapelvic structures is unremarkable. 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 Dictated by: Dictated on workstation # [id number]
== END ==
LOC: RAD 08:12
PROVIDERS: ATTEND Family Medicine
DX: M16.0 Bilateral primary osteoarthritis of hip (principal)
CPT/HCPCS: 72192

== ENCOUNTER → 2023-05-23 | Outpatient (RCR) | payer BC | END | disposition still patient (30) | PROVIDERS: ATTEND Family Medicine | DX: M25.551 Pain in right hip (principal); M54.50 Low back pain, unspecified ==

== ENCOUNTER 2023-06-06 09:14 | Outpatient (RCR) | payer BC | END 2023-06-21 10:04 | disposition home or self-care (01) | PROVIDERS: ATTEND Family Medicine | DX: M54.50 Low back pain, unspecified (principal); M25.551 Pain in right hip ==